=== PATIENT | male | born 1955 | race Asian ===

== ENCOUNTER 2017-12-06 03:45 | Inpatient (IN) | payer MEDICARE, MEDICAID ==
[~2017-12-06] VITALS: Ht 167.6 cm; Wt 65.5 kg
[2017-12-06] MEDS ORDERED: NIFEdipine 10 MG CAP ONE (04:20)
[2017-12-06 04:24] LABS: Basophils # (auto) 0 uL; Basophils % (auto) 0.8 % (0.0-2.0); Eosinophils # (auto) 0 uL; Eosinophils % (auto) 0.1 % (0.0-7.0); Hematocrit 41.5 % (41.0-53.0); Hemoglobin 13.2 g/dL (13.5-17.5); Lymphocytes # (auto) 0.8 uL; Lymphocytes % (auto) 12.6 % (10.0-50.0); Mean Corpuscular Hemoglobin 28.7 pg (28.0-32.0); Mean Corpuscular Hgb Conc. 31.7 g/dL (32.0-36.0); Mean Corpuscular Volume 90.3 fL (80.0-100.0); Monocytes # (auto) 0.9 uL; Monocytes % (auto) 13.7 % (0.0-12.0); Neutrophils # (auto) 4.6 uL; Neutrophils % (auto) 72.8 % (37.0-80.0); Nucleated Red Blood Cells % 0.1 %; Platelet Count (auto) 149 10^3/uL (140-450); Red Cell Distribution Width 17.7 % (11.8-14.3); White Blood Cell 6.3 10^3/uL (4.4-10.8)
[2017-12-06] MEDS ORDERED: NIFEdipine 10 MG CAP PO ONE (04:30)
[2017-12-06 04:39] LABS: INR 1.1 (0.9-1.15); Partial Thromboplastin Time 23.8 sec (22.64-33.71)
[2017-12-06] MEDS ORDERED: ALBUTEROL SULF 2.5 MG/0.5ML(0.5%) NEB SOLN NEB ONE (04:45)
[2017-12-06] MEDS ORDERED: methylPREDNISolone SOD SUCC 125 MG/2 ML VL IV ONE (04:45)
[2017-12-06] MEDS ORDERED: IPRATROPIUM BROM 0.5 MG/2.5ML INH SOL NEB ONE (04:45)
[2017-12-06] MEDS ORDERED: ALBUTEROL SULF 2.5 MG/0.5ML(0.5%) NEB SOLN ONE (04:55)
[2017-12-06] MEDS ORDERED: IPRATROPIUM BROM 0.5 MG/2.5ML INH SOL ONE (04:55)
[2017-12-06] MEDS ORDERED: AZTREONAM 1GM INJ 1 GM in D5W 5% 50 ML IV ONE (06:45)
[2017-12-06] MEDS ORDERED: AZITHROMYCIN 500MG/ 250ML 250 ML IV ONE (06:45)
[2017-12-06 07:45] LABS: Potassium 6.1 mmol/L (3.5-5.1)
[2017-12-06 07:46] LABS: Albumin 3.6 g/dL (3.4-5.0); BUN/Creatinine Ratio 3.9; Bilirubin, Total 0.6 mg/dL (0.2-1.0); Calcium 8.2 mg/dL (8.5-10.1); Total Protein 7.4 g/dL (6.4-8.2)
[2017-12-06 07:47] LABS: Magnesium 2.5 mg/dL (1.6-2.6)
[2017-12-06] MEDS ORDERED: ALBUTEROL SULF 2.5 MG/0.5ML(0.5%) NEB SOLN NEB PRN (09:00)
[2017-12-06] MEDS ORDERED: NITROGLYCERIN 0.4 MG SL TAB SL PRN (09:00)
[2017-12-06] MEDS ORDERED: LORazepam 0.5 MG TAB PO PRN (09:00)
[2017-12-06] MEDS ORDERED: ACETAMINOPHEN 500 MG TAB PO PRN (09:00)
[2017-12-06] MEDS ORDERED: TEMAZEPAM 15 MG CAP PO PRN (09:00)
[2017-12-06] MEDS ORDERED: PIPERACILLIN-TAZOB 2.25GM 50 ML IV ONE (09:00)
[2017-12-06] MEDS ORDERED: HYDROcodone-ACET 5/325MG TAB PO PRN (09:00)
[2017-12-06] MEDS ORDERED: MORPHINE SULFATE 4 MG/ML SYR/VIAL IV PRN ×2 (09:00)
[2017-12-06] MEDS ORDERED: LACTULOSE 20Gm/30ML SOLN PO PRN (09:00)
[2017-12-06] MEDS ORDERED: VANCOMYCIN PER PHARMACY 0 MG IV SCH (09:00)
[2017-12-06] MEDS ORDERED: PROMETHAZINE HCL 25 MG/ML 1ML IV PRN (09:00)
[2017-12-06] MEDS ORDERED: SODIUM POLYSTYRENE SULF 15GM/60ML SUSP PO ONE (09:00)
[2017-12-06] MEDS ORDERED: OSELTAMIVIR 30 MG CAP PO ONE (09:15)
[2017-12-06] MEDS ORDERED: PIPERACILLIN-TAZOB 0.75 GM in D5W 5% 50 ML IV PRN (09:15)
[2017-12-06] MEDS ORDERED: OSELTAMIVIR 30 MG CAP PO PRN (09:15)
[2017-12-06] MEDS: CARVEDILOL 3.125 MG TAB PO SCH ×2 (10:00→22:01)
[2017-12-06] MEDS ORDERED: ENOXAPARIN SOD 30 MG/0.3 ML SYRINGE SC SCH (10:00)
[2017-12-06] MEDS ORDERED: OSELTAMIVIR 30 MG CAP PO SCH (10:00)
[2017-12-06] MEDS: FUROSEMIDE 40 MG/4 ML VIAL IV SCH (10:20)
[2017-12-06] MEDS: ASPirin 81 mg TAB PO SCH (10:21)
[2017-12-06] MEDS: HEPARIN SODIUM (PORCINE) 5000 UNITS/ML 1ML VIAL SC SCH ×2 (10:25→22:01)
[2017-12-06] MEDS: IPRATROPIUM BROM 0.5 MG/2.5ML INH SOL NEB SCH ×2 (11:00→18:25)
[2017-12-06] MEDS: ALBUTEROL SULF 2.5 MG/0.5ML(0.5%) NEB SOLN NEB SCH ×2 (11:10→18:25)
[2017-12-06] MEDS: SODIUM CHLOR 0.9% PF (SALINE LOCK) 10ML VIAL IV SCH ×2 (14:00→21:40)
[2017-12-06] MEDS ORDERED: VANCOMYCIN 1GM/250ML 250 ML IV ONE (15:00)
[2017-12-06 21:27] VITALS: BP 138/77
[2017-12-06] MEDS: PIPERACILLIN-TAZOB 2.25GM 50 ML IV SCH (22:01)
[2017-12-07] VITALS (16 sets, daily range): BP systolic 135–163; BP diastolic 67–85
[2017-12-07] MEDS: IPRATROPIUM BROM 0.5 MG/2.5ML INH SOL NEB SCH ×4 (00:12→19:12)
[2017-12-07] MEDS: ALBUTEROL SULF 2.5 MG/0.5ML(0.5%) NEB SOLN NEB SCH ×4 (00:12→19:11)
[2017-12-07] MEDS ORDERED: OSELTAMIVIR 75 MG CAP PO ONE (01:15)
[2017-12-07] MEDS: SODIUM CHLOR 0.9% PF (SALINE LOCK) 10ML VIAL IV SCH ×3 (05:49→22:00)
[2017-12-07 05:53] LABS: Basophils # (auto) 0 uL; Basophils % (auto) 0.5 % (0.0-2.0); Eosinophils # (auto) 0 uL; Hematocrit 35.4 % (41.0-53.0); Hemoglobin 11.8 g/dL (13.5-17.5); Lymphocytes # (auto) 0.7 uL; Lymphocytes % (auto) 12.7 % (10.0-50.0); Mean Corpuscular Hemoglobin 29.3 pg (28.0-32.0); Mean Corpuscular Hgb Conc. 33.2 g/dL (32.0-36.0); Mean Corpuscular Volume 88.3 fL (80.0-100.0); Monocytes # (auto) 0.6 uL; Monocytes % (auto) 11.1 % (0.0-12.0); Neutrophils # (auto) 4.4 uL; Neutrophils % (auto) 75.7 % (37.0-80.0); Nucleated Red Blood Cells % 0.1 %; Platelet Count (auto) 134 10^3/uL (140-450); Red Blood Cells 4.01 10^6/uL (4.5-5.90); Red Cell Distribution Width 17.6 % (11.8-14.3); White Blood Cell 5.9 10^3/uL (4.4-10.8)
[2017-12-07 06:27] LABS: Albumin 3.3 g/dL (3.4-5.0); BUN/Creatinine Ratio 5.9; Bilirubin, Total 0.5 mg/dL (0.2-1.0); Calcium 7.9 mg/dL (8.5-10.1); Potassium 5.4 mmol/L (3.5-5.1); Total Protein 6.8 g/dL (6.4-8.2)
[2017-12-07] MEDS ORDERED: ICOS1CAP OR (06:33)
[2017-12-07] MEDS ORDERED: ATOR10TA52 PO (06:33)
[2017-12-07] MEDS ORDERED: AMLO5TAB2 PO (06:33)
[2017-12-07] MEDS ORDERED: SEVE800T8 PO (06:33)
[2017-12-07] MEDS ORDERED: DOXA1TAB42 PO (06:33)
[2017-12-07] MEDS ORDERED: PANC3600 OR (06:33)
[2017-12-07] MEDS ORDERED: ASP81EC PO (06:33)
[2017-12-07] MEDS ORDERED: CARV12.544 PO (06:33)
[2017-12-07] MEDS ORDERED: B-COTAB10 OR (06:33)
[2017-12-07] MEDS ORDERED: CALC667C PO (06:33)
[2017-12-07] MEDS: FUROSEMIDE 40 MG/4 ML VIAL IV SCH (09:42)
[2017-12-07] MEDS: CARVEDILOL 3.125 MG TAB PO SCH ×2 (09:43→22:54)
[2017-12-07] MEDS: ASPirin 81 mg TAB PO SCH (09:43)
[2017-12-07] MEDS: PIPERACILLIN-TAZOB 2.25GM 50 ML IV SCH ×2 (09:44→22:00)
[2017-12-07] MEDS: HEPARIN SODIUM (PORCINE) 5000 UNITS/ML 1ML VIAL SC SCH ×2 (09:47→22:51)
[2017-12-07] MEDS ORDERED: OSELTAMIVIR 75 MG CAP PO SCH (10:00)
[2017-12-07] MEDS ORDERED: SODIUM CHL 0.9% 1000 ML BAG XX ONE (10:45)
[2017-12-07] MEDS ORDERED: VANCOMYCIN 1GM/250ML 250 ML IV ONE (11:00)
[2017-12-07] MEDS ORDERED: AZITHROMYCIN 500MG/ 250ML 250 ML IV SCH (12:00)
[2017-12-07] MEDS ORDERED: OSELTAMIVIR 30 MG CAP PO SCH (15:45)
[2017-12-08] MEDS: IPRATROPIUM BROM 0.5 MG/2.5ML INH SOL NEB SCH ×3 (00:03→11:28)
[2017-12-08] MEDS: ALBUTEROL SULF 2.5 MG/0.5ML(0.5%) NEB SOLN NEB SCH ×3 (00:03→11:28)
[2017-12-08 05:00] VITALS: BP 183/99
[2017-12-08] MEDS: SODIUM CHLOR 0.9% PF (SALINE LOCK) 10ML VIAL IV SCH (06:00)
[2017-12-08 06:45] LABS: Basophils # (auto) 0 uL; Basophils % (auto) 0.4 % (0.0-2.0); Eosinophils # (auto) 0 uL; Eosinophils % (auto) 0.1 % (0.0-7.0); Hematocrit 37.5 % (41.0-53.0); Hemoglobin 12.3 g/dL (13.5-17.5); Lymphocytes # (auto) 0.5 uL; Lymphocytes % (auto) 8.7 % (10.0-50.0); Mean Corpuscular Hgb Conc. 32.7 g/dL (32.0-36.0); Mean Corpuscular Volume 88.7 fL (80.0-100.0); Monocytes # (auto) 0.4 uL; Neutrophils # (auto) 5.1 uL; Neutrophils % (auto) 84.8 % (37.0-80.0); Platelet Count (auto) 156 10^3/uL (140-450); Red Blood Cells 4.23 10^6/uL (4.5-5.90); Red Cell Distribution Width 17.8 % (11.8-14.3)
[2017-12-08 07:17] LABS: BUN/Creatinine Ratio 6.9; Calcium 7.2 mg/dL (8.5-10.1); Potassium 5.4 mmol/L (3.5-5.1)
[2017-12-08 08:00] VITALS: BP 148/80
[2017-12-08 09:00] VITALS: BP 160/93
[2017-12-08] MEDS: FUROSEMIDE 40 MG/4 ML VIAL IV SCH (09:55)
[2017-12-08] MEDS: PIPERACILLIN-TAZOB 2.25GM 50 ML IV SCH (09:55)
[2017-12-08] MEDS: ASPirin 81 mg TAB PO SCH (09:56)
[2017-12-08] MEDS: CARVEDILOL 3.125 MG TAB PO SCH (09:56)
[2017-12-08 10:45] VITALS: BP 160/93
== END 2017-12-08 11:30 | disposition home or self-care (01) | DRG 177 ==
LOC: ER 03:46 → TELE 03:47 → ICU WEST 12-07 05:41 → EAST 12-07 16:46
PROVIDERS: ADMIT Internal Medicine; ATTEND Family Medicine
PROC: 5A1D70Z Performance of Urinary Filtration, Intermittent, Less than 6 Hours Per Day (ICD-10-PCS; principal; 2017-12-08)
DX: J15.6 Pneumonia due to other Gram-negative bacteria (principal); J96.01 Acute respiratory failure with hypoxia; I13.2 Hypertensive heart and chronic kidney disease with heart failure and with stage 5 chronic kidney disease, or end stage renal disease; N18.6 End stage renal disease; I50.33 Acute on chronic diastolic (congestive) heart failure; D64.9 Anemia, unspecified; E78.5 Hyperlipidemia, unspecified; E87.5 Hyperkalemia; F17.200 Nicotine dependence, unspecified, uncomplicated; N40.0 Benign prostatic hyperplasia without lower urinary tract symptoms; Z99.2 Dependence on renal dialysis
CPT/HCPCS: 36415; 36600; 70450; 71045; 71250; 74176; 80048; 80053; 80061; 80202; 82140; 82550; 82805; 82962; 83605; 83735; 83880; 84484; 85025; 85379; 85610; 85730; 87040; 87081; 87804; 90935; 93005; 93306; 94640; 96365; 96367; 96375; 99291; G9035; J1642; J2543; J7060

== ENCOUNTER 2025-06-19 11:13 | Inpatient (IN) | payer OTHER, MEDICAID ==
[~2025-06-19] VITALS: Ht 33 cm; Wt 59.2 kg
[~2025-06-19 11:13] MED LIST: AMLO1TAB22 PO; ASPI-394 PO; ATOR10TA52 PO; B-CO1TAB60 OR; CALC667C PO; CARV12.544 PO; DOXA1TAB42 PO; ICOS1CAP OR; PANC3600 OR; SEVE800T8 PO
[2025-06-19 11:38] VITALS: PULSE 50; RESP 16; O2SAT 94
--- NOTE | 2025-06-19 11:41 | ED.PDOC ---
General HPI Comments This is a 69 year-old male who presents to the ED with a chief complaint of urinary retention with additional symptoms of weight gain and swelling to L hand, face, and bilateral legs as of X6 days ago. Pt reports minimal urination, about half a cup a day. 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 Patient has no further complaints at this time and otherwise denies N/V/D, fever, chills, dysuria, hematuria, or chest pain. Chief Complaint: Urinary Time Seen by MD: 11:43 Reviewed notes: Nurses Notes, Medications, Allergies Allergies: Coded Allergies: No Known Drug Allergy (Verified Allergy, Unknown, 12/06/17) Home Meds Reported Medications Carvedilol (Carvedilol) 12.5 Mg Tab, 12.5 MG PO Q12HR for 30 Days, MG 12/07/17 Doxazosin Mesylate (Doxazosin Mesylate) 2 Mg Tab, 4 MG PO HS for 30 Days, MG 12/07/17 Aspirin (Aspir-Low Ec) 81 Mg Tb, 81 MG PO DAILY for 30 Days, MG 12/07/17 Amlodipine Besylate (Amlodipine Besylate) 5 Mg Tab, 10 MG PO DAILY for 30 Days, MG 12/07/17 Atorvastatin Calcium (ATORVASTATIN CALCIUM) 10 Mg Tab, 1 TAB PO DAILY, #30 TAB 5 Refills 12/07/17 B-Complex W/ C & Folic Acid (Nephro-Martin) Tab, 1 OR DAILY, TAB 12/07/17 Calcium Acetate (Phosphate Bin (Calcium Acetate) 667 Mg Cap, 1334 MG PO TIDWM for 30 Days, MG 12/07/17 Pancrelipase (Lipase-Protease- (CREON) 36,000 Unt Cap, 36991 UNT OR TID, CAP 12/07/17 Sevelamer Carbonate (Renvela) 800 Mg Tab, 800 MG PO TIDWM for 30 Days, MG 12/07/17 Epa Ethyl Elsie (VASCEPA) 1 Gm Cap, 1 GM OR TID, CAP 12/07/17 Information Source: Patient Mode of Arrival: Ambulatory Severity: Moderate Timing: Days Duration: Since onset Prehospital treatment: None Onset: Spontaneous Symptoms: Inability to void associated signs and symptoms: Inability to Void Past Medical History PAST MEDICAL HISTORY: CKF, ESRD, HTN Surgical History: Denies all surgeries Family History Family History: Unknown Social History Smoker: Non-Smoker Alcohol: Denies ETOH Use Drugs: Denies Drug Use Lives In: Home Constitutional: reports: others (swelling to L hand, face, and bilateral legs. Weight gain +10 pounds ); denies: chills, diaphoresis, fatigue, fever, malaise, sweats, weakness EENTM: denies: blurred vision, double vision, ear bleeding, ear discharge, ear drainage, ear pain, ear ringing, eye pain, eye redness, hearing loss, mouth pain, mouth swelling, nasal discharge, nose bleeding, nose congestion, nose pain, photophobia, tearing, throat pain, throat swelling, voice changes, others Respiratory: denies: cough, hemoptysis, orthopnea, SOB at rest, shortness of breath, SOB with excertion, stridor, wheezing, others Cardiovascular: denies: chest pain, dizzy spells, diaphoresis, Dyspnea on exertion, edema, irregular heart beat, left arm pain, lightheadedness, palp itations, PND, syncope, others Gastrointestinal: denies: abdomen distended, abdominal pain, blood streaked bowels, constipated, diarrhea, dysphagia, difficulty swallowing, hematemesis, melena, nausea, poor appetite, poor fluid intake, rectal bleeding, rectal pain, vomiting, others Genitourinary: reports: others (urinary retention ); denies: burning, dysuria, flank pain, frequency, hematuria, incontinence, penile discharge, penile sore, pain, testicle pain, testicle swelling, urgency Neurological: denies: dizziness, fainting, headache, left sided numbness, left sided weakness, numbness, paresthesia, pre-existing deficit, right sided numbness, right sided weakness, seizure, speech problems, tingling, tremors, weakness, others Musculoskeletal: denies: back pain, gout, joint pain, joint swelling, muscle pain, muscle stiffness, neck pain, others Integumetry: denies: bruises, change in color, change in hair/nails, dryness, laceration, lesions, lumps, rash, wounds, others Hematologic/Lymphatic: denies: anemia, blood clots, easy bleeding, easy bruising, swollen glands, others Endocrine: denies: excessive hunger, excessive sweating, excessive thirst, excessive urination, flushing, intolerance to cold, intolerance to heat, unexplained weight gain, unexplained weight loss, others Psychiatric: denies: anxiety, bipolar disorder, depression, hopeless, panic disorder, schizophrenia, sleepless, suicidal, others All Other Systems: Reviewed and Negative Physical Exam General Appearance: Moderate Distress HEENT: Normal ENT Inspection, Pharynx Normal, TMs Normal Neck: Full Range of Motion, Non-Tender, Normal, Normal Inspection Respiratory: Chest Non-Tender, Lungs Clear, No Accessory Muscle Use, No Respiratory Distress, Normal Breath Sounds Cardiovascular: No Edema, No JVD, No Murmur, No Gallop, Normal Peripheral Pulses, Regular Rate/Rhythm Breast Exam: Deferred Gastrointestinal: No Organomegaly, Non Tender, No Pulsatile Mass, Normal Bowel Sounds, Soft Genitalia: Deferred Pelvic: Deferred Rectal: Deferred Extremities: No calf tenderness, Normal capillary refill, Normal inspection, Normal range of motion, Non-tender, No pedal edema Musculoskeletal : Apperance: Normal Neurologic: Alert, human resources representative II-XII nml as Tested, No Motor Deficits, Normal Affect, Normal Mood, No Sensory Deficits Cerebellar Function: NOT DONE Reflexes: NOT DONE Skin: Dry, Normal Color, Warm Peripheral Pulses: 3+ Radial (R), 3+ Radial (L) Lymphatic: No Adenopathy Was a procedure done? Was a procedure done?: No EKG EKG : Pulse Rate (adult): 56 [place]: Normal Cardiac Rhythm: NSR Block: None Hypertrophy: None ST: Normal Comments Possible LAE Differential Diagnosis Kidney stone (Female): Musculoskeletal pain, Urinary obstruction, Urolithiasis Penile/Scrotal: Prostatitis, UTI, Urinary Retention X-Ray, Labs, Meds, VS Vital Signs Date Time Temp Pulse Resp B/P (MAP) Pulse Ox O2 Delivery O2 Flow Rate FiO2 06/19/25 14:00 97.2 51 17 122/52 (75) 95 97.2 06/19/25 13:00 97.2 50 17 122/53 (76) 96 97.2 06/19/25 11:41 56 06/19/25 11:38 50 16 94 Nasal Cannula* 2 28 06/19/25 11:38 50 16 124/58 (80) 94 06/19/25 11:28 56 06/19/25 11:16 98.0 18 18 134/57 93 98.0 Lab Test 06/19/25 13:08 06/19/25 11:59 Range/Units Troponin I High Sensitivity 12 11 </=54 ng/L White Blood Count 6.2 4.4-10.8 10^3/uL Red Blood Count 4.80 4.5-5.90 10^6/uL Hemoglobin 13.6 13.5-17.5 g/dL Hematocrit 41.4 41.0-53.0 % Mean Corpuscular Volume 86.3 80.0-100.0 fL Mean Corpuscular Hemoglobin 28.2 28.0-32.0 pg Mean Corpuscular Hemoglobin Concent 32.7 32.0-36.0 g/dL Red Cell Distribution Width 14.4 H 11.8-14.3 % Platelet Count 154 140-450 10^3/uL Mean Platelet Volume 9.0 6.9-10.8 fL Neutrophils (%) (Auto) 79.7 37.0-80.0 % Lymphocytes (%) (Auto) 10.6 10.0-50.0 % Monocytes (%) (Auto) 7.8 0.0-12.0 % Eosinophils (%) (Auto) 1.4 0.0-7.0 % Basophils (%) (Auto) 0.5 0.0-2.0 % Neutrophils # (Auto) 4.9 1.6-8.6 10 ^3/uL Lymphocytes # (Auto) 0.7 0.4-5.4 10 ^3/uL Monocytes # (Auto) 0.5 0-1.3 10 ^3/uL Eosinophils # (Auto) 0.1 0-0.8 10 ^3/uL Basophils # (Auto) 0 0-0.2 10 ^3/uL Nucleated Red Blood Cells 0.2 % Sodium Level 142 136-145 mmol/L Potassium Level 4.3 3.5-5.1 mmol/L Chloride Level 112 H 98-107 mmol/L Carbon Dioxide Level 17 L 20-31 mmol/L Anion Gap 13 5-15 Blood Urea Nitrogen 21 9-23 mg/dL Creatinine 1.56 H 0.700-1.30 mg/dL Glomerular Filtration Rate Calc 48 >90 mL/min BUN/Creatinine Ratio 13.5 10.0-20.0 Serum Glucose 98 74-106 mg/dL Calcium Level 9.8 8.7-10.4 mg/dL Total Bilirubin 0.6 0.2-1.0 mg/dL Aspartate Amino Transferase (AST) 14 13-40 U/L Alanine Aminotransferase (ALT) 12 7-40 U/L Alkaline Phosphatase 72 46-116 U/L Total Protein 6.2 5.7-8.2 g/dL Albumin 3.8 3.2-4.8 g/dL Patient alert. Complaining of urinary hesitancy. Bladder scan does show 100 mL of urine. Vitals stable. Possibly prostate. Creatinine slightly elevated. He has a donated one of his kidneys. CO2 is low. Cardiac marker within normal limits. Urology consultation. Continue monitoring. Images Reviewed?: Images reviewed and evaluated by me Time of 1ST Reevaluation: 12:39 Reevaluation 1ST: Unchanged Patient Education/Counseling: Diagnosis, Treatment Family Education/Counseling: No Family Present Medical Screening: No EMC Exist At This Time SEPSIS Sepsis Screen Date sepsis recognized/suspect: Jun 19, 2025 Time Sepsis recognized/suspect: 1119 Recent Procedure: No On Antibiotic Therapy: No Respiratory Rate >20: No Heart Rate >90: No Temp<36 C (96.8 F) or >38.3 C: No SBP <90 or MAP <65 mmHG: No New Acute Mental Status Change: No Is the patient on CPAP, BIPAP,: No Physician Orders Chest Portable (06/19/25 11:51) Urinalysis (06/19/25 11:51) Troponin-I Hs (06/19/25 14:51) Vital Signs Date Time Temp Pulse Resp B/P (MAP) Pulse Ox O2 Delivery O2 Flow Rate FiO2 06/19/25 14:00 97.2 51 17 122/52 (75) 95 97.2 06/19/25 13:00 97.2 50 17 122/53 (76) 96 97.2 06/19/25 11:41 56 06/19/25 11:38 50 16 94 Nasal Cannula* 2 28 06/19/25 11:38 50 16 124/58 (80) 94 06/19/25 11:28 56 06/19/25 11:16 98.0 18 18 134/57 93 98.0 Laboratory Tests Test 06/19/25 11:59 White Blood Count 6.2 10^3/uL (4.4-10.8) Departure 1 Departure Time of Disposition: 14:55 Impression: Primary Impression: Urinary retention Additional Impressions: Metabolic acidosis Prostate hypertrophy Disposition: ADMITTED INPATIENT Admit to: Med Surg Condition: Guarded Critical Care Note Critical Care Time?: No Stability Stability form required: No Heart Score Heart Score: Heart Score Response (Comments) Value History Slightly Suspicious 0 EKG Normal 0 Age >65 2 Risk Factors 1 or 2 risk factors 1 Troponin N/A 0 Total 3 I personally scribed for JAYY ALAN MD ([email or web address]) on 06/19/25 at 11:41. Electronically submitted by Latha Connors ([employer]). I personally scribed for JAYY ALAN MD ([email or web address]) on 06/19/25 at 11:54. Electronically submitted by Latha Connors ([employer]). JAYY ALAN MD Jun 19, 2025 11:41
--- NOTE | 2025-06-19 11:42 | ECG ---
[facility] Test Date: 2025-06-19 Test Time: 11:28:17 Pat Name: ELIAS IRAHETA Department: Room: 0214T Gender: M Tailer Out: DYAN : 1955 Requested By: JAYY ALAN Order Number: [id number] Reading MD: Niall Ruggiero Measurements Intervals [place] Rate: 56 P: -5 SD: 153 QRS: 19 QRSD: 82 T: 69 QT: 437 QTc: 422 Interpretive Statements Sinus rhythm Probable left atrial enlargement Probable anteroseptal infarct, old Electronically Signed On 06-25-2025 21:47:14 PDT by Niall Ruggiero Please click the below link to view image of tracing.
[2025-06-19 12:10] LABS: Hematocrit 41.4 % (41.0-53.0); Hemoglobin 13.6 g/dL (13.5-17.5); Mean Corpuscular Hemoglobin 28.2 pg (28.0-32.0); Mean Corpuscular Volume 86.3 fL (80.0-100.0); Nucleated Red Blood Cells % 0.2 %
--- NOTE | 2025-06-19 12:23 | DVH ---
XY CHEST PORTABLE, HISTORY: sob COMPARISON: None None TECHNICAL DATA: 1 view of the chest was obtained. FINDINGS: Lines and tubes: None Cardiomediastinal silhouette: Prominent Pulmonary vasculature: Prominent. Lung expansion: normal Lung airspace: normal Lung interstitium: normal Pleura: normal Pneumothorax: no Bones: Unremarkable Other: Bilateral subclavian region vascular stents are noted. IMPRESSION: Cardiomegaly with pulmonary vascular congestion.
[2025-06-19 12:59] LABS: Alanine Aminotransferase 12 U/L (7-40); Albumin 3.8 g/dL (3.2-4.8); Alkaline Phosphatase 72 U/L (46-116); Anion Gap 13 (5-15); BUN/Creatinine Ratio 13.5 (10.0-20.0); Bilirubin, Total 0.6 mg/dL (0.2-1.0); Blood Urea Nitrogen 21 mg/dL (9-23); Glucose 98 mg/dL (74-106); Potassium 4.3 mmol/L (3.5-5.1); Sodium 142 mmol/L (136-145); Total Protein 6.2 g/dL (5.7-8.2)
[2025-06-19 13:00] LABS: Carbon Dioxide 17 mmol/L (20-31); Chloride 112 mmol/L (98-107)
[2025-06-19 13:01] LABS: Calcium 9.8 mg/dL (8.7-10.4)
[2025-06-19 15:56] LABS: Urine Protein, UAD TRACE (Negative)
--- NOTE | 2025-06-19 18:31 | DVHHPRES ---
History of Present Illness Resident Creating Document: ROSINA JIMENEZ History of Present Illness Patient is a 69-year-old male with a past medical history of end-stage renal disease status post renal transplant, hypertensive heart disease, insulin dependent diabetes mellitus presented to the ED with a chief complaint of worsening shortness of breath with the last 2 days. Patient reports since the last 2 days he has been having worsening shortness of breath which worsens with exertion. Denied any chest pain or pressure. Patient denied any history of NC/heart failure. Patient does not use oxygen at home and does not have any history of COPD or asthma. He denied any recent travel or sick contacts and does not report fever, chills but he did have some expectoration in the last 2 days. On arrival to the ER patient was found to be bradycardic with the ECG showing sinus bradycardia with tall T-waves in V3- V4, but no acute ST segment changes. Serial troponin levels within normal limits and he did not complain of any chest pain. Medical history:end-stage renal disease status post renal transplant, hypertensive heart disease, insulin dependent diabetes mellitus Surgical history: Renal transplant Social history: Patient denies smoking, alcohol, drug use Home medications: Mycophenolate mofetil 500 mg b.i.d., tacrolimus 1 mg b.i.d., prednisolone 5 mg daily, carvedilol, sevelamer, pancrelipase, atorvastatin, amlodipine, aspirin Review of Systems Review of Systems Patient seen and examined at the bedside Reports of shortness of breath while exertion, on oxygen at 4 L/min denies any shortness of breath, chest pain, weakness, abdominal pain, fever or chills Allergies: Coded Allergies: No Known Drug Allergy (Verified Allergy, Unknown, 12/06/17) Exam Vital Signs Vital Signs Date Time Temp Pulse Resp B/P (MAP) Pulse Ox O2 Delivery O2 Flow Rate FiO2 06/19/25 14:00 97.2 51 17 122/52 (75) 95 97.2 06/19/25 11:38 Nasal Cannula* 2 28 Exam Gen - no pallor, no icterus, no cyanosis, no peripheral edema . Skin - Patients skin is warm and dry. HEENT - normocephalic, atraumatic, moist mucous membranes. Neck - full ROM, no LAD, JVD mildly distended Pulmonary - B/L decreased breath sounds with bibasilar rales cardiovascular - regular S1,S2 heard, no added sounds, no murmurs heard. periphe ral pulses normal radial 2+, pedal 2+. GI - soft, nontender abdomen. no hepatosplenomegaly. Bowel sounds normoactive Neurological - Patient is A/O X 3 . Bilateral upper extremity strength 5/5, bilateral lower extremity strength 5/5, no facial droop, normal speech, no tremor, no sensory deficiets. Labs/Xrays Labs Test 06/19/25 14:52 06/19/25 11:59 06/19/25 00:00 Range/Units Troponin I High Sensitivity 13 </=54 ng/L White Blood Count 6.2 4.4-10.8 10^3/uL Red Blood Count 4.80 4.5-5.90 10^6/uL Hemoglobin 13.6 13.5-17.5 g/dL Hematocrit 41.4 41.0-53.0 % Mean Corpuscular Volume 86.3 80.0-100.0 fL Mean Corpuscular Hemoglobin 28.2 28.0-32.0 pg Mean Corpuscular Hemoglobin Concent 32.7 32.0-36.0 g/dL Red Cell Distribution Width 14.4 H 11.8-14.3 % Platelet Count 154 140-450 10^3/uL Mean Platelet Volume 9.0 6.9-10.8 fL Neutrophils (%) (Auto) 79.7 37.0-80.0 % Lymphocytes (%) (Auto) 10.6 10.0-50.0 % Monocytes (%) (Auto) 7.8 0.0-12.0 % Eosinophils (%) (Auto) 1.4 0.0-7.0 % Basophils (%) (Auto) 0.5 0.0-2.0 % Neutrophils # (Auto) 4.9 1.6-8.6 10 ^3/uL Lymphocytes # (Auto) 0.7 0.4-5.4 10 ^3/uL Monocytes # (Auto) 0.5 0-1.3 10 ^3/uL Eosinophils # (Auto) 0.1 0-0.8 10 ^3/uL Basophils # (Auto) 0 0-0.2 10 ^3/uL Nucleated Red Blood Cells 0.2 % Sodium Level 142 136-145 mmol/L Potassium Level 4.3 3.5-5.1 mmol/L Chloride Level 112 H 98-107 mmol/L Carbon Dioxide Level 17 L 20-31 mmol/L Anion Gap 13 5-15 Blood Urea Nitrogen 21 9-23 mg/dL Creatinine 1.56 H 0.700-1.30 mg/dL Glomerular Filtration Rate Calc 48 >90 mL/min BUN/Creatinine Ratio 13.5 10.0-20.0 Serum Glucose 98 74-106 mg/dL Calcium Level 9.8 8.7-10.4 mg/dL Total Bilirubin 0.6 0.2-1.0 mg/dL Aspartate Amino Transferase (AST) 14 13-40 U/L Alanine Aminotransferase (ALT) 12 7-40 U/L Alkaline Phosphatase 72 46-116 U/L Total Protein 6.2 5.7-8.2 g/dL Albumin 3.8 3.2-4.8 g/dL Urine Color Light-yellow Yellow Urine Clarity Clear Clear Urine pH 5.5 5.0-9.0 Urine Specific [place] 1.015 1.001-1.035 Urine Protein Trace H Negative Urine Ketones Negative Negative Urine Blood Negative Negative /uL Urine Nitrite Negative Negative Urine Bilirubin Negative Negative Urine Urobilinogen Normal Negative mg/dL Urine Leukocyte Esterase Negative Negative /uL Urine RBC <1 0 - 3 /hpf Urine Microscopic WBC < 1 0-3 /HPF Urine Squamous Epithelial Cells None seen <5 /hpf Urine Bacteria None seen None Seen /hpf Urine Glucose Normal Normal mg/dL SEPSIS Sepsis Screen Date sepsis recognized/suspect: Jun 19, 2025 Time Sepsis recognized/suspect: 1138 Recent Procedure: No On Antibiotic Therapy: No Respiratory Rate >20: No Heart Rate >90: No Temp<36 C (96.8 F) or >38.3 C: No SBP <90 or MAP <65 mmHG: No New Acute Mental Status Change: No Is the patient on CPAP, BIPAP,: No Physician Orders Chest Portable (06/19/25 11:51) Vital Signs Date Time Temp Pulse Resp B/P (MAP) Pulse Ox O2 Delivery O2 Flow Rate FiO2 06/19/25 14:00 97.2 51 17 122/52 (75) 95 97.2 06/19/25 13:00 97.2 50 17 122/53 (76) 96 97.2 06/19/25 11:41 56 06/19/25 11:38 50 16 94 Nasal Cannula* 2 28 06/19/25 11:38 50 16 124/58 (80) 94 06/19/25 11:28 56 06/19/25 11:16 98.0 18 18 134/57 93 98.0 Laboratory Tests Test 06/19/25 11:59 White Blood Count 6.2 10^3/uL (4.4-10.8) Assessment/Plan Assessment/Plan Acute hypoxic respiratory failure likely due to pulmonary edema Pulmonary edema likely due to acute on chronic heart failure Probable pneumonia likely due to Gram +/- bacteria - chest x-ray shows bilateral pulmonary vascular congestion and cardiomegaly, possible right lower consolidation - on IV Lasix 40 b.i.d. - antibiotics ceftriaxone and doxycycline - duo nebs q.6 hours Sinus bradycardia, symptomatic ? New onset heart failure vs acute on chronic heart failure - ECG showed sinus tachycardia with a slightly tall T-waves in lead V3 and V4 - troponin levels within normal limits - cardiology consulted History of renal transplant SHAJI on CKD likely due to VMN - continued on tacrolimus, mycophenolate mofetil, prednisone - IV Lasix - sevelamer - monitor electrolytes - nephrology consult PUD prophylaxis: Protonix DVT prophylaxis: Heparin Goals of care discussed with the patient for 20 minutes. Full code Plan discussed with Dr. Mosqueda Plan discussed with: Patient, Other (Nurse) Date of Service: Jun 19, 2025 Billing Provider: ASHLEY MOSQUEDA MD Date of Service: Jun 19, 2025 Billing Provider: ASHLEY MOSQUEDA MD Common Visit Codes: 51630-[id number] INP/OBS CARE (HIGH) Secondary Visit Codes: 00451-[id number] CARE PLAN 30 MINUTES (20 minutes) Addendum Addendum Addendum I was physically present for the urbina portions of the service provided to patient by THE RESIDENT. I have reviewed the documentation, discussed the case with resident and agree with the resident's documentation except as noted. Also the patient's clinical case was discussed with the patient's nurse. This medical document was created using an electronic medical record system with computerized dictation system. Although this document has been carefully reviewed, there might still be some phonetic and typographical errors. These areas are purely typographical due to imperfections of the software programs, and do not reflect any compromise in the patient's medical care. Late signature. YOUMATTHEWNG RESIDENT Jun 19, 2025 18:31 AMY HERNANDEZ Jun 19, 2025 19:36 ASHLEY MOSQUEDA MD Jun 22, 2025 11:55
[2025-06-19] MEDS ORDERED: NITROGLYCERIN 0.4 MG SL TAB SL PRN (18:45)
[2025-06-19] MEDS ORDERED: MORPHINE SULFATE INJ 2 MG/ml SYRG IV PRN (18:45)
[2025-06-19] MEDS ORDERED: ONDANSETRON HCL 4 MG/2 ML VIAL IV PRN (18:45)
[2025-06-19 19:50] LABS: Sodium 140 mmol/L (136-145)
[2025-06-19 19:51] LABS: Anion Gap 8 (5-15); Carbon Dioxide 21 mmol/L (20-31)
[2025-06-19 19:52] LABS: Calcium 9.6 mg/dL (8.7-10.4); Chloride 111 mmol/L (98-107); Potassium 5.1 mmol/L (3.5-5.1)
[2025-06-19 19:57] LABS: BUN/Creatinine Ratio 12.5 (10.0-20.0); Blood Urea Nitrogen 20 mg/dL (9-23); Glucose 204 mg/dL (74-106)
--- NOTE | 2025-06-19 20:11 | DVH ---
ULTRASOUND ABDOMEN: REASON FOR EXAM: abd distention TECHNIQUE: Real-time sector scans in the transverse and longitudinal planes were obtained through th e abdomen. FINDINGS: The liver is of normal size and contour. There is hepatopetal flow in the portal vein. The re is no intrahepatic biliary ductal dilatation. There is an anechoic cyst in the inferior left lobe of the liver measuring 2.9 x 2.4 x 3.1 cm. The common bile duct measures 14 mm. No gallstones or sl udge are identified. There is no gallbladder wall thickening nor pericholecystic fluid. There is no sonographic Brower's sign. The spleen is normal in size. The visualized portion of the pancreas is unremarkable. The right kidney is echogenic and measures 8.3 cm. The left kidney is echogenic and measures 9.1 cm. There is no hydronephrosis or nephrolithiasis. There is no evidence of focal renal mass. There ar e several anechoic cysts within the right kidney, the largest of which measures 2.5 cm at the superio r pole. There are a few tiny anechoic cysts within the left kidney, the largest of which measures 1.2 cm in the interpolar region. There is a transplant kidney in the right pelvis which measures 9.9 cm in length. The transplant kid sari demonstrates normal echogenicity. There is no hydronephrosis. The visualized portions of the abdominal aorta demonstrate no evidence of aneurysmal dilatation. The visualized inferior vena cava is unremarkable. There is no free intraperitoneal fluid. There are bilateral pleural effusions. IMPRESSION: Incidental note of bilateral pleural effusions. Dilated common bile duct at 14 mm. Recommend MRCP for evaluation of the distal common bile duct. Atrophic poarch kidneys with multiple cysts. Normal appearance of the right pelvic transplant kidney.
[2025-06-19] MEDS: PANTOPRAZOLE 40 MG TAB PO ONE (21:08)
[2025-06-19] MEDS: FUROSEMIDE 40 MG/4 ML VIAL IV ONE (21:10)
[2025-06-19] MEDS: DOXYCYCLINE 100 MG TAB/CAP PO SCH (22:31)
[2025-06-19 22:41] LABS: COVID19 ANTIGEN SOFIA FIA NEGATIVE (NEGATIVE)
[2025-06-19] MEDS: HEPARIN SODIUM (PORCINE) 5000 UNITS/ML 1ML VIAL SC SCH (23:36)
[2025-06-20] MEDS: MYCOPHENOLATE 500 MG TAB PO SCH (00:56)
[2025-06-20] MEDS: TACROLIMUS 1 MG CAP PO SCH (00:57)
[2025-06-20 04:07] LABS: Hematocrit 46.0 % (41.0-53.0); Hemoglobin 15.0 g/dL (13.5-17.5); Mean Corpuscular Hemoglobin 28.2 pg (28.0-32.0); Mean Corpuscular Volume 86.7 fL (80.0-100.0); Nucleated Red Blood Cells % 0.1 %
[2025-06-20 04:16] LABS: Anion Gap 9 (5-15); Carbon Dioxide 23 mmol/L (20-31); Potassium 4.6 mmol/L (3.5-5.1); Sodium 141 mmol/L (136-145)
[2025-06-20 04:18] LABS: Calcium 10.1 mg/dL (8.7-10.4)
[2025-06-20 04:20] LABS: Chloride 109 mmol/L (98-107)
[2025-06-20 04:23] LABS: BUN/Creatinine Ratio 13.9 (10.0-20.0); Blood Urea Nitrogen 21 mg/dL (9-23); Glucose 186 mg/dL (74-106)
[2025-06-20] MEDS: PANTOPRAZOLE 40 MG TAB PO SCH (06:11)
[2025-06-20] MEDS: FUROSEMIDE 40 MG/4 ML VIAL IV SCH (06:11)
[2025-06-20] MEDS: SEVELAMER 800 MG TAB PO SCH (09:26)
--- NOTE | 2025-06-20 09:37 | DVHINCON2 ---
Date Seen: Jun 20, [address] Pierson Reason for Consultation Pulmonary congestion History of Present Illness This is a 69-year-old male who presents to the ED with shortness of breath for the past two days. He is alert and oriented but a poor historian. He denies dizziness, diaphoresis, orthopnea, paroxysmal nocturnal dyspnea, or lower extremity edema, but reports shortness of breath with exertion. Past medical history significant for chronic kidney disease status post right kidney transplant, hypertension, hyperlipidemia, BPH, and liver failure. Review of prior records shows an echocardiogram in 2018 with preserved left ventricular function (EF 52-56%). In the ED, a 12 lead ECG revealed sinus bradycardia at 58 beats per minute and chest x-ray demonstrated cardiomegaly with pulmonary congestion. Past Medical History As stated in HPI Past Surgical History Right kidney transplant Family History Reviewed, non-contributory to the management of this case. Social History The patient lives at home, denies smoking, alcohol or illicit drugs abuse. Allergies: Coded Allergies: No Known Drug Allergy (Verified Allergy, Unknown, 12/06/17) Home Meds Reported Medications Carvedilol (Carvedilol) 12.5 Mg Tab, 12.5 MG PO Q12HR for 30 Days, MG 12/07/17 Doxazosin Mesylate (Doxazosin Mesylate) 2 Mg Tab, 4 MG PO HS for 30 Days, MG 12/07/17 Aspirin (Aspir-Low Ec) 81 Mg Tb, 81 MG PO DAILY for 30 Days, MG 12/07/17 Amlodipine Besylate (Amlodipine Besylate) 5 Mg Tab, 10 MG PO DAILY for 30 Days, MG 12/07/17 Atorvastatin Calcium (ATORVASTATIN CALCIUM) 10 Mg Tab, 1 TAB PO DAILY, #30 TAB 5 Refills 12/07/17 B-Complex W/ C & Folic Acid (Nephro-Martin) Tab, 1 OR DAILY, TAB 12/07/17 Calcium Acetate (Phosphate Bin (Calcium Acetate) 667 Mg Cap, 1334 MG PO TIDWM for 30 Days, MG 12/07/17 Pancrelipase (Lipase-Protease- (CREON) 36,000 Unt Cap, 34475 UNT OR TID, CAP 12/07/17 Sevelamer Carbonate (Renvela) 800 Mg Tab, 800 MG PO TIDWM for 30 Days, MG 12/07/17 Epa Ethyl Elsie (VASCEPA) 1 Gm Cap, 1 GM OR TID, CAP 12/07/17 Current Medications Current Medications Medications (Trade) Dose Ordered Sig/Jayy Route PRN Reason Start Time Stop Time Status Last Admin Nitroglycerin (Ntrostat Sublingual) 0.4 mg Q5MINP PRN SL FOR CHEST PAIN 06/19/25 18:45 Morphine Sulfate 2 mg Q30M PRN IV FOR CHEST PAIN 06/19/25 18:45 Furosemide (Lasix Injection) 40 mg BIDD IV 06/20/25 06:00 06/20/25 06:11 Pantoprazole Sodium (Protonix Tablet) 40 mg DAILY@0600 PO 06/20/25 06:00 06/20/25 06:11 Ondansetron HCl (Zofran) 4 mg Q6HPRN PRN IV NAUSEA / VOMITING 06/19/25 18:45 Ceftriaxone Sodium 50 ml @ 100 mls/hr DAILY@09 IV 06/20/25 09:00 Doxycycline Monohydrate (Vibramycin Tablet) 100 mg Q12HR PO 06/19/25 22:00 06/19/25 22:31 Heparin Sodium (Porcine) 5,000 units Q12HR SC 06/19/25 22:00 Aspirin 81 mg DAILY PO 06/20/25 10:00 Sevelamer HCl (Renagel) 800 mg TIDWM PO 06/20/25 08:00 Tacrolimus (Prograf) 1 mg BID PO 06/19/25 22:00 Mycophenolate Mofetil (Cellcept) 500 mg BID PO 06/19/25 22:00 Prednisone 5 mg DAILY PO 06/20/25 10:00 Review of Systems Constitutional: No symptom reported Ears, Nose, & Throat: No symptom reported Eyes: No symptom reported Neurological: No symptoms reported Pulmonary/Respiratory: Shortness of breath Cardiovascular: No symptom reported Gastrointestinal: No symptom reported Genitourinary: No symptom reported Musculoskeletal: No symptom reported Skin: No symptom reported Psychiatric: No symptom reported Endocrine: No symptom reported Hemotologic/Lymphatic: No symptom reported Vital Signs Vital Signs Date Time Temp Pulse Resp B/P (MAP) Pulse Ox O2 Delivery O2 Flow Rate FiO2 06/20/25 08:00 57 06/20/25 06:11 143/57 06/20/25 05:30 19 100 06/19/25 20:30 98.1 98.1 06/19/25 19:30 Nasal Cannula* 4 36 Physical Exam INITIAL VITAL SIGNS: Reviewed by me GENERAL: Alert and interactive. No acute distress. HEAD: Head is normocephalic and atraumatic. EYES: EOMI, PERRL. No scleral icterus. No conjunctival injection. ENT: Moist mucous membranes. NECK: Supple, No masses, Full range of motion. RESPIRATORY: No tachypnea. Clear breath sounds bilaterally. No wheezing, rales, rhonchi. CV: Regular rate and rhythm. Mild JVP distention on supine position. No edema GI/: Active bowel sounds, soft, nondistended, nontender. No guarding. No rebound. No masses. No CVA tenderness. INTEGUMENTARY: Warm and dry. No obvious rashes. NEUROLOGIC: Alert and oriented. Face is symmetric. Speech is normal. Moves all extremities equally. Labs/Diagnostic Data Labs Test 06/20/25 03:48 06/19/25 22:02 06/19/25 19:24 06/19/25 14:52 Range/Units White Blood Count 6.8 4.4-10.8 10^3/uL Red Blood Count 5.30 4.5-5.90 10^6/uL Hemoglobin 15.0 13.5-17.5 g/dL Hematocrit 46.0 # 41.0-53.0 % Mean Corpuscular Volume 86.7 80.0-100.0 fL Mean Corpuscular Hemoglobin 28.2 28.0-32.0 pg Mean Corpuscular Hemoglobin Concent 32.5 32.0-36.0 g/dL Red Cell Distribution Width 14.2 11.8-14.3 % Platelet Count 163 140-450 10^3/uL Mean Platelet Volume 8.9 6.9-10.8 fL Neutrophils (%) (Auto) 78.6 37.0-80.0 % Lymphocytes (%) (Auto) 9.8 L 10.0-50.0 % Monocytes (%) (Auto) 9.9 0.0-12.0 % Eosinophils (%) (Auto) 1.3 0.0-7.0 % Basophils (%) (Auto) 0.4 0.0-2.0 % Neutrophils # (Auto) 5.3 1.6-8.6 10 ^3/uL Lymphocytes # (Auto) 0.7 0.4-5.4 10 ^3/uL Monocytes # (Auto) 0.7 0-1.3 10 ^3/uL Eosinophils # (Auto) 0.1 0-0.8 10 ^3/uL Basophils # (Auto) 0 0-0.2 10 ^3/uL Nucleated Red Blood Cells 0.1 % Sodium Level 141 136-145 mmol/L Potassium Level 4.6 3.5-5.1 mmol/L Chloride Level 109 H 98-107 mmol/L Carbon Dioxide Level 23 20-31 mmol/L Anion Gap 9 5-15 Blood Urea Nitrogen 21 9-23 mg/dL Creatinine 1.51 H 0.700-1.30 mg/dL Glomerular Filtration Rate Calc 50 >90 mL/min BUN/Creatinine Ratio 13.9 10.0-20.0 Serum Glucose 186 H 74-106 mg/dL Calcium Level 10.1 8.7-10.4 mg/dL Influenza Type A Antigen Negative Negative Influenza Type B Antigen Negative Negative SARS-CoV-2 Antigen (Rapid) Negative NEGATIVE Lactic Acid Level 0.8 0.4-2.0 mmol/L Phosphorus Level 2.7 2.4-5.1 mg/dL B-Type Natriuretic Peptide 858.25 0-100 pg/mL Troponin I High Sensitivity 13 </=54 ng/L Test 06/19/25 11:59 06/19/25 00:00 Range/Units Total Bilirubin 0.6 0.2-1.0 mg/dL Aspartate Amino Transferase (AST) 14 13-40 U/L Alanine Aminotransferase (ALT) 12 7-40 U/L Alkaline Phosphatase 72 46-116 U/L Total Protein 6.2 5.7-8.2 g/dL Albumin 3.8 3.2-4.8 g/dL Urine Color Light-yellow Yellow Urine Clarity Clear Clear Urine pH 5.5 5.0-9.0 Urine Specific [place] 1.015 1.001-1.035 Urine Protein Trace H Negative Urine Ketones Negative Negative Urine Blood Negative Negative /uL Urine Nitrite Negative Negative Urine Bilirubin Negative Negative Urine Urobilinogen Normal Negative mg/dL Urine Leukocyte Esterase Negative Negative /uL Urine RBC <1 0 - 3 /hpf Urine Microscopic WBC < 1 0-3 /HPF Urine Squamous Epithelial Cells None seen <5 /hpf Urine Bacteria None seen None Seen /hpf Urine Glucose Normal Normal mg/dL PROCEDURE(s): CXRP - CHEST PORTABLE REASON: sob ORDER NUMBER(s): [id number], ACCESSION NUMBER(s): [id number] XY CHEST PORTABLE, HISTORY: sob COMPARISON: None None TECHNICAL DATA: 1 view of the chest was obtained. FINDINGS: Lines and tubes: None Cardiomediastinal silhouette: Prominent Pulmonary vasculature: Prominent. Lung expansion: normal Lung airspace: normal Lung interstitium: normal Pleura: normal Pneumothorax: no Bones: Unremarkable Other: Bilateral subclavian region vascular stents are noted. IMPRESSION: Cardiomegaly with pulmonary vascular congestion. Assessment Acute on chronic decompensated heart failure. Possible NYHA II-III Cardiomegaly and pulmonary vascular congestion Sinus bradycardia Hyperlipidemia Chronic kidney disease s/p right kidney transplant Hypertension BPH Plan/Recommendation (Dr. Randall ): Continue to monitor on telemetry due to sinus bradycardia risk of heart block. He will under go a transthoracic echocardiogram to assess left ventricular function and structural heart disease. Laboratory evaluation will include hemoglobin A1c, TSH, and lipid panel for cardiovascular risk assessment and optimization. Daily weights and strict intake and output monitoring will be implemented to guide fluid management. Intravenous furosemide should be continued to manage pulmonary congestion and volume overload, with close monitor ing of electrolytes and renal function, considering his kidney transplant history. Electrolytes, renal function, and magnesium levels will be checked regularly. BNP trends will be monitored to assess response to therapy. Medication adjustment will be made as appropriate for rate control and heart failure management. Patient education regarding heart failure symptoms fluid restriction and activity limitations is provided. In the meantime home medication will be continued including Coreg for rate and heart failure management, atorvastatin for lipid control, and aspirin daily for cardiovascular prophylaxis. Medication adjustment will be made as needed based on clinical status and lab results. This medical document was created using an electronic medical record system with voice recognition software and computerized dictation system. Although this document has been carefully reviewed, there might still be some phonetic and typographical errors. Occasional wrong-word or ``sound-alike substitutions may have occurred due to the inherent limitations of voice recognition software. These areas are purely typographical due to imperfections of the software programs and do not reflect any compromise in the patient's medical care. Please read the chart carefully and recognize, using context, where these substitutions have occurred. Plan discussed with: Patient Plan discussed with: Patient NYHA Physical activity limitations: Class2(Slight)fatigue,sob Date of Service: Jun 20, 2025 Billing Provider: AMINATA RANDALL MD Cardiology Common Codes: NOT BILLABLE Cardiology Consultation Codes: [id number] CONSULT <45MIN STEFAN HONG HEMATOLOGY SPECIALIST Jun 20, 2025 09:37
[2025-06-20 11:16] VITALS: PULSE 59; RESP 20; TEMP 98.1
[2025-06-20 11:39] LABS: Magnesium 1.6 mg/dL (1.6-2.6); Triglycerides 226.0 mg/dL (< 150)
[2025-06-20 11:40] LABS: Cholesterol 194.0 mg/dL (< 200); HDL Cholesterol 45.0 mg/dL (40-59)
--- NOTE | 2025-06-20 11:56 | DVHPNRES ---
Progress Note Date Seen: Jun 20, 2025 Resident Creating Document: DIANA FELDMAN RESIDENT Medical Necessity Reason Pt with a Central, PICC or Fol: No Subjective Review of Systems 06/20: Patient was seen and examined at bedside. He stated having significant clinical improvement. He was still on nasal cannula at 4 L saturating well above 96%. He is currently ambulating to the bedside commode, denies any dizziness, lightheadedness, chest pain, significant shortness of breath. Turkish speaking; ship's officer was helping with conversation Objective vital signs Vital Sign Date Time Temp Pulse Resp B/P (MAP) Pulse Ox O2 Delivery O2 Flow Rate FiO2 06/20/25 11:16 98.1 59 20 98.1 06/20/25 09:59 Nasal Cannula* 2 28 06/20/25 06:11 143/57 06/20/25 05:30 100 Total Intake and Output 06/19/25 06/19/25 06/20/25 15:00 23:00 07:00 Intake Total 50 ml Output Total 1950 ml Balance 50 ml -1950 ml medications Current Medications Medications Dose Ordered Sig/Jayy Route Start Time Stop Time Status Last Admin Dose Admin Nitroglycerin 0.4 mg Q5MINP PRN SL 06/19/25 18:45 Morphine Sulfate 2 mg Q30M PRN IV 06/19/25 18:45 Furosemide 40 mg BIDD IV 06/20/25 06:00 06/20/25 06:11 40 MG Pantoprazole Sodium 40 mg DAILY@0600 PO 06/20/25 06:00 06/20/25 06:11 40 MG Ondansetron HCl 4 mg Q6HPRN PRN IV 06/19/25 18:45 Ceftriaxone Sodium 50 ml @ 100 mls/hr DAILY@09 IV 06/20/25 09:00 06/20/25 09:26 100 MLS/HR Doxycycline Monohydrate 100 mg Q12HR PO 06/19/25 22:00 06/20/25 09:27 100 MG Heparin Sodium (Porcine) 5,000 units Q12HR SC 06/19/25 22:00 06/20/25 09:31 5,000 UNITS Sevelamer HCl 800 mg TIDWM PO 06/20/25 08:00 06/20/25 09:26 800 MG Tacrolimus 1 mg BID PO 06/19/25 22:00 06/20/25 09:28 1 MG Mycophenolate Mofetil 500 mg BID PO 06/19/25 22:00 06/20/25 09:28 500 MG Prednisone 5 mg DAILY PO 06/20/25 10:00 06/20/25 09:27 5 MG Aspirin 81 mg DAILY PO 06/21/25 10:00 Carvedilol 12.5 mg Q12HR PO 06/20/25 22:00 Atorvastatin Calcium 10 mg HS PO 06/20/25 22:00 Examination Physical examination as below: General: Awake, alert, comfortable appearing, in no acute distress. HEENT: Head is normocephalic and atraumatic. Pupils are equal, round, and reactive to light. Extraocular muscles are intact. No nasal discharge. No facial trauma. Intraoral exam shows moist mucous membranes with no tonsillar enlargement or exudate. Neck: Supple with no cervical lymphadenopathy. Heart: Regular rate without murmur, rub, or gallop. Lungs: Scattered bilateral crackles Abdomen: No external sign of injury. Bowel sounds are present. Abdomen is soft, nontender. No rebound, no guarding, no rigidity. There are no palpable masses. There is no flank pain on exam. Extremities: Strong peripheral pulses. There is no clubbing, no cyanosis, and no edema. Left-sided arm old surgical scar from AV fistula. Right-sided arm AV fistula. Skin: No rash. Neurologic: Cranial nerves II-XII intact without motor, sensory, or cerebellar deficit, no asterixis. laboratory and microbiology Laboratory Tests 06/20/25 03:48 Test 06/20/25 03:48 Range/Units Serum Glucose 186 H 74-106 mg/dL Labs and/or images reviewed: Labs reviewed by me, Image(s) reviewed by me Problem List/Assessment/Plan Problem List/Assessment/Plan #Acute hypoxic respiratory failure likely due to pulmonary edema #Pulmonary edema likely due to acute on chronic heart failure #Probable new onset Acute heart failure systolic/diastolic ejection fraction #Probable pneumonia likely due to Gram +/- bacteria - chest x-ray shows bilateral pulmonary vascular congestion and cardiomegaly, possible right lower consolidation - continue IV Lasix 40 b.i.d. - antibiotics ceftriaxone and doxycycline - duo nebs q.6 hours Pending echocardiogram Wean down oxygen to room air, maintain an oxygen saturation above 92% #Sinus bradycardia, asymptomatic - ECG showed sinus bradycardia with a slightly tall T-waves in lead V3 and V4 - troponin levels within normal limits - cardiology following Pending echocardiogram #History of renal transplant #SHAJI on CKD likely due to VMN - continued on tacrolimus, mycophenolate mofetil, prednisone - IV Lasix - sevelamer - monitor electrolytes - nephrology consult pending #Common bile duct dilation, asymptomatic Follow with MRCP in the outpatient setting #Dyslipidemia Continue Lipitor #Type 2 diabetes with hyperglycemia SSI mild Pending A1c PUD prophylaxis: Protonix DVT prophylaxis: Heparin Plan discussed with Dr. Mosqueda Plan discussed with: Patient, Other (RN) My Orders My Orders Orders - DIANA FELDMAN RESIDENT Procedure Category Date Status Time Magnesium Vasquez PHA 06/20/25 Verified 11:45 Date of Service: Jun 20, 2025 Billing Provider: ASHLEY MOSQUEDA MD Common Visit Codes: [id number] INP/OBS CARE(HIGH) Addendum Addendum Addendum I was physically present for the urbina portions of the service provided to patient by THE RESIDENT. I have reviewed the documentation, discussed the case with resident and agree with the resident's documentation except as noted. Also the patient's clinical case was discussed with the patient's nurse. This medical document was created using an electronic medical record system with computerized dictation system. Although this document has been carefully reviewed, there might still be some phonetic and typographical errors. These areas are purely typographical due to imperfections of the software programs, and do not reflect any compromise in the patient's medical care. Late signature. DIANA FELDMAN RESIDENT Jun 20, 2025 11:56 ASHLEY MOSQUEDA MD Jun 22, 2025 11:56
[2025-06-20] MEDS ORDERED: DEXTROSE (50%) 50ML SYRG IV PRN (12:00)
[2025-06-20] MEDS: MAGNESIUM SULFATE 1GM/100ML 100 ML IV ONE (13:26)
--- NOTE | 2025-06-20 14:29 | DVHINCON2 ---
Date of service: Jun 20, [address] Pierson Reason for Consultation ESRD, now status post kidney transplant status History of Present Illness Mr. Jeffries is a 69-year-old male with known history of prior ESRD now status post what he reported to be a donor kidney transplant two years ago at [facility]. His presentation to [facility] currently is related to increase in weight gain over the past week with associated exertional dyspnea. He has been treated with IV diuretics and states that his shortness of breath has improved since hospital admission. He states that he has gained approximately 8 lb over the past week and keeps meticulous records regarding his vital signs and his weights. He denies gross hematuria, tenderness over his allograft, fevers or chills. Past Medical History ESRD Hypertension Chronic heart failure Kidney transplant status Allergies: Coded Allergies: No Known Drug Allergy (Verified Allergy, Unknown, 12/06/17) Home Meds Reported Medications Carvedilol (Carvedilol) 12.5 Mg Tab, 12.5 MG PO Q12HR for 30 Days, MG 12/07/17 Doxazosin Mesylate (Doxazosin Mesylate) 2 Mg Tab, 4 MG PO HS for 30 Days, MG 12/07/17 Aspirin (Aspir-Low Ec) 81 Mg Tb, 81 MG PO DAILY for 30 Days, MG 12/07/17 Amlodipine Besylate (Amlodipine Besylate) 5 Mg Tab, 10 MG PO DAILY for 30 Days, MG 12/07/17 Atorvastatin Calcium (ATORVASTATIN CALCIUM) 10 Mg Tab, 1 TAB PO DAILY, #30 TAB 5 Refills 12/07/17 B-Complex W/ C & Folic Acid (Nephro-Martin) Tab, 1 OR DAILY, TAB 12/07/17 Calcium Acetate (Phosphate Bin (Calcium Acetate) 667 Mg Cap, 1334 MG PO TIDWM for 30 Days, MG 12/07/17 Pancrelipase (Lipase-Protease- (CREON) 36,000 Unt Cap, 37294 UNT OR TID, CAP 12/07/17 Sevelamer Carbonate (Renvela) 800 Mg Tab, 800 MG PO TIDWM for 30 Days, MG 12/07/17 Epa Ethyl Elsie (VASCEPA) 1 Gm Cap, 1 GM OR TID, CAP 12/07/17 Current Medications Current Medications Medications (Trade) Dose Ordered Sig/Jayy Route PRN Reason Start Time Stop Time Status Last Admin Nitroglycerin (Ntrostat Sublingual) 0.4 mg Q5MINP PRN SL FOR CHEST PAIN 06/19/25 18:45 Morphine Sulfate 2 mg Q30M PRN IV FOR CHEST PAIN 06/19/25 18:45 Furosemide (Lasix Injection) 40 mg BIDD IV 06/20/25 06:00 06/20/25 06:11 Pantoprazole Sodium (Protonix Tablet) 40 mg DAILY@0600 PO 06/20/25 06:00 06/20/25 06:11 Ondansetron HCl (Zofran) 4 mg Q6HPRN PRN IV NAUSEA / VOMITING 06/19/25 18:45 Ceftriaxone Sodium 50 ml @ 100 mls/hr DAILY@09 IV 06/20/25 09:00 06/20/25 09:26 Doxycycline Monohydrate (Vibramycin Tablet) 100 mg Q12HR PO 06/19/25 22:00 06/20/25 09:27 Heparin Sodium (Porcine) 5,000 units Q12HR SC 06/19/25 22:00 06/20/25 09:31 Aspirin 81 mg DAILY PO 06/20/25 10:00 06/20/25 10:17 DC 06/20/25 09:27 Sevelamer HCl (Renagel) 800 mg TIDWM PO 06/20/25 08:00 06/20/25 12:16 Tacrolimus (Prograf) 1 mg BID PO 06/19/25 22:00 06/20/25 09:28 Mycophenolate Mofetil (Cellcept) 500 mg BID PO 06/19/25 22:00 06/20/25 09:28 Prednisone 5 mg DAILY PO 06/20/25 10:00 06/20/25 09:27 Aspirin (Ecotrin Enteric Coated Tablet) 81 mg DAILY PO 06/21/25 10:00 Carvedilol (Coreg Tablet) 12.5 mg Q12HR PO 06/20/25 22:00 Atorvastatin Calcium (Lipitor) 10 mg HS PO 06/20/25 22:00 Diagnostic Test (Pha) (Accu-Chek Comfort Curve T) 1 strip ACHS 06/20/25 17:00 Insulin Human Regular (InsuLIN R) ACHS SC 06/20/25 17:00 Dextrose 50 ml UD PRN IV Blood Sugar LESS THAN 60 06/20/25 12:00 Amlodipine Besylate (Norvasc Tablet) 10 mg DAILY PO 06/21/25 10:00 Family History: Diabetes mellitus G8 MOTHER, 19 CHILD Review of Systems As per history of present illness otherwise all systems are reviewed and are noncontributory. H&P Exam Vital Signs/I&O Vital Sign Date Time Temp Pulse Resp B/P (MAP) Pulse Ox O2 Delivery O2 Flow Rate FiO2 06/20/25 13:25 129/88 06/20/25 11:16 98.1 59 20 98.1 06/20/25 09:59 Nasal Cannula* 2 28 06/20/25 05:30 100 Intake and Output 06/19/25 06/20/25 18:59 06:59 Intake Total 50 ml Output Total 1950 ml Balance -1900 ml Intake IV Total 50 ml Output Urine Total 1950 ml # Voids 5 Physical Exam Gen: nad, thin male who appears stated age heent: nc/at, mmm lungs: cta anteriorly cvs: no rub abd: soft, bowel sounds audible, kidney allograft is nontender. ext: no edema skin: no rash neuro: alert and oriented Labs/Diagnostic Data Labs/Diagnostic Data Laboratory Tests Test 06/20/25 03:48 06/19/25 22:02 06/19/25 19:24 06/19/25 14:52 Range/Units White Blood Count 6.8 4.4-10.8 10^3/uL Red Blood Count 5.30 4.5-5.90 10^6/uL Hemoglobin 15.0 13.5-17.5 g/dL Hematocrit 46.0 # 41.0-53.0 % Mean Corpuscular Volume 86.7 80.0-100.0 fL Mean Corpuscular Hemoglobin 28.2 28.0-32.0 pg Mean Corpuscular Hemoglobin Concent 32.5 32.0-36.0 g/dL Red Cell Distribution Width 14.2 11.8-14.3 % Platelet Count 163 140-450 10^3/uL Mean Platelet Volume 8.9 6.9-10.8 fL Neutrophils (%) (Auto) 78.6 37.0-80.0 % Lymphocytes (%) (Auto) 9.8 L 10.0-50.0 % Monocytes (%) (Auto) 9.9 0.0-12.0 % Eosinophils (%) (Auto) 1.3 0.0-7.0 % Basophils (%) (Auto) 0.4 0.0-2.0 % Neutrophils # (Auto) 5.3 1.6-8.6 10 ^3/uL Lymphocytes # (Auto) 0.7 0.4-5.4 10 ^3/uL Monocytes # (Auto) 0.7 0-1.3 10 ^3/uL Eosinophils # (Auto) 0.1 0-0.8 10 ^3/uL Basophils # (Auto) 0 0-0.2 10 ^3/uL Nucleated Red Blood Cells 0.1 % Sodium Level 141 140 136-145 mmol/L Potassium Level 4.6 5.1 3.5-5.1 mmol/L Chloride Level 109 H 111 H 98-107 mmol/L Carbon Dioxide Level 23 21 20-31 mmol/L Anion Gap 9 8 5-15 Blood Urea Nitrogen 21 20 9-23 mg/dL Creatinine 1.51 H 1.60 H 0.700-1.30 mg/dL Glomerular Filtration Rate Calc 50 46 >90 mL/min BUN/Creatinine Ratio 13.9 12.5 10.0-20.0 Serum Glucose 186 H 204 #H 74-106 mg/dL Hemoglobin A1c 7.1 H <5.7 % A1C Calcium Level 10.1 9.6 8.7-10.4 mg/dL Magnesium Level 1.6 1.6-2.6 mg/dL B-Type Natriuretic Peptide 970.73 858.25 0-100 pg/mL Triglycerides Level 226 H < 150 mg/dL Cholesterol Level 194 < 200 mg/dL LDL Cholesterol 118 H < 100 mg/dL HDL Cholesterol 45 40-59 mg/dL Thyroid Stimulating Hormone (TSH) 3.29 0.55-4.78 uIU/mL Influenza Type A Antigen Negative Negative Influenza Type B Antigen Negative Negative SARS-CoV-2 Antigen (Rapid) Negative NEGATIVE Lactic Acid Level 0.8 0.4-2.0 mmol/L Phosphorus Level 2.7 2.4-5.1 mg/dL Troponin I High Sensitivity 13 </=54 ng/L Test 06/19/25 13:08 06/19/25 11:59 06/19/25 00:00 Range/Units Troponin I High Sensitivity 12 11 </=54 ng/L White Blood Count 6.2 4.4-10.8 10^3/uL Red Blood Count 4.80 4.5-5.90 10^6/uL Hemoglobin 13.6 13.5-17.5 g/dL Hematocrit 41.4 41.0-53.0 % Mean Corpuscular Volume 86.3 80.0-100.0 fL Mean Corpuscular Hemoglobin 28.2 28.0-32.0 pg Mean Corpuscular Hemoglobin Concent 32.7 32.0-36.0 g/dL Red Cell Distribution Width 14.4 H 11.8-14.3 % Platelet Count 154 140-450 10^3/uL Mean Platelet Volume 9.0 6.9-10.8 fL Neutrophils (%) (Auto) 79.7 37.0-80.0 % Lymphocytes (%) (Auto) 10.6 10.0-50.0 % Monocytes (%) (Auto) 7.8 0.0-12.0 % Eosinophils (%) (Auto) 1.4 0.0-7.0 % Basophils (%) (Auto) 0.5 0.0-2.0 % Neutrophils # (Auto) 4.9 1.6-8.6 10 ^3/uL Lymphocytes # (Auto) 0.7 0.4-5.4 10 ^3/uL Monocytes # (Auto) 0.5 0-1.3 10 ^3/uL Eosinophils # (Auto) 0.1 0-0.8 10 ^3/uL Basophils # (Auto) 0 0-0.2 10 ^3/uL Nucleated Red Blood Cells 0.2 % Sodium Level 142 136-145 mmol/L Potassium Level 4.3 3.5-5.1 mmol/L Chloride Level 112 H 98-107 mmol/L Carbon Dioxide Level 17 L 20-31 mmol/L Anion Gap 13 5-15 Blood Urea Nitrogen 21 9-23 mg/dL Creatinine 1.56 H 0.700-1.30 mg/dL Glomerular Filtration Rate Calc 48 >90 mL/min BUN/Creatinine Ratio 13.5 10.0-20.0 Serum Glucose 98 74-106 mg/dL Calcium Level 9.8 8.7-10.4 mg/dL Total Bilirubin 0.6 0.2-1.0 mg/dL Aspartate Amino Transferase (AST) 14 13-40 U/L Alanine Aminotransferase (ALT) 12 7-40 U/L Alkaline Phosphatase 72 46-116 U/L Total Protein 6.2 5.7-8.2 g/dL Albumin 3.8 3.2-4.8 g/dL Urine Color Light-yellow Yellow Urine Clarity Clear Clear Urine pH 5.5 5.0-9.0 Urine Specific [place] 1.015 1.001-1.035 Urine Protein Trace H Negative Urine Ketones Negative Negative Urine Blood Negative Negative /uL Urine Nitrite Negative Negative Urine Bilirubin Negative Negative Urine Urobilinogen Normal Negative mg/dL Urine Leukocyte Esterase Negative Negative /uL Urine RBC <1 0 - 3 /hpf Urine Microscopic WBC < 1 0-3 /HPF Urine Squamous Epithelial Cells None seen <5 /hpf Urine Bacteria None seen None Seen /hpf Urine Glucose Normal Normal mg/dL Assessment IMP: 1) ESRD now status post donor kidney transplant approximately two years ago - serum creatinine has been in the mid one range 2) acute on chronic heart failure - symptoms of dyspnea improved with diuresis 3) anemia 4) diabetes 5) hypertension REC: - clinically stable from Nephrology perspective, Mr. Jeffries states that he is looking for local nephrology care as he has been going down to [facility] for the past two years. - we will continue with current immunosuppressive regimen - agree with use of loop diuretic as needed to achieve desired ECF volume - we will continue to follow closely with you. Thank you for the consultation. Plan discussed with: Patient VIVIAN ASHFORD MD Jun 20, 2025 14:29
[2025-06-20] MEDS: ACCU-CHEK COMFORT CURVE STRIP VI SCH (16:54)
[2025-06-20] MEDS: InsuLIN REG 1unit/0.01ml Soln (100units/ml) SC SCH (16:54)
[2025-06-20 17:00] VITALS: BP 111/55; PULSE 54; RESP 12; TEMP 98.7; O2SAT 86
[2025-06-20] MEDS ORDERED: TAMS0.4C39 PO (17:25)
[2025-06-20] MEDS ORDERED: FURO40TA4 PO (17:25)
[2025-06-20] MEDS ORDERED: MYCO250C PO (17:25)
[2025-06-20] MEDS ORDERED: PANT40TA2 PO (17:25)
[2025-06-20] MEDS ORDERED: PRE5T PO (17:25)
[2025-06-20] MEDS ORDERED: TACR1GRA PO (17:25)
[2025-06-20] MEDS ORDERED: FLUC200T50 PO (17:25)
[2025-06-20] MEDS ORDERED: ATEN-60 PO (17:25)
[2025-06-20] MEDS ORDERED: NIFE1TAB31 PO (17:25)
[2025-06-20] MEDS ORDERED: OXYB5TAB14 PO (17:25)
[2025-06-20] MEDS ORDERED: INSLISPI SC (17:25)
[2025-06-20] MEDS ORDERED: POTTAB2 PO (17:25)
[2025-06-20] MEDS ORDERED: INSU100I70 SC (17:25)
[2025-06-20] MEDS ORDERED: CHLO25TA2 PO (17:25)
[2025-06-20 20:00] VITALS: PULSE 57; PULSE 61; RESP 18; O2SAT 92
[2025-06-20 21:00] VITALS: BP 144/70; PULSE 57; RESP 20; TEMP 98.2; O2SAT 92
[2025-06-20] MEDS: ATORVASTATIN 20 MG TAB PO SCH (21:29)
[2025-06-20] MEDS: CARVEDILOL 12.5 MG TAB PO SCH (21:29)
[2025-06-21 01:00] VITALS: BP 128/74; PULSE 55; RESP 20; TEMP 98; O2SAT 93
[2025-06-21 05:00] VITALS: BP 139/70; PULSE 54; RESP 20; TEMP 98.6; O2SAT 96
--- NOTE | 2025-06-21 06:10 | DVH ---
INDICATION: pulmonary congestion TECHNIQUE: Frontal view of the chest. COMPARISON: XY CHEST PORTABLE on DOS: 06/19/25, XY CHEST PORTABLE on DOS: 06/19/25 FINDINGS: Lines and tubes: None Cardiomediastinal silhouette: Prominent Pulmonary vasculature: Prominent. Lung expansion: normal Lung airspace: normal Lung interstitium: normal Pleura: normal Pneumothorax: no Bones: Unremarkable Other: Bilateral subclavian region vascular stents are noted. IMPRESSION: Cardiomegaly with pulmonary vascular congestion.
[2025-06-21 06:41] LABS: Anion Gap 11 (5-15); Carbon Dioxide 24 mmol/L (20-31); Chloride 103 mmol/L (98-107); Potassium 4.1 mmol/L (3.5-5.1); Sodium 138 mmol/L (136-145)
[2025-06-21 06:42] LABS: Calcium 9.9 mg/dL (8.7-10.4)
[2025-06-21 06:47] LABS: BUN/Creatinine Ratio 15.9 (10.0-20.0)
[2025-06-21 06:48] LABS: Magnesium 1.7 mg/dL (1.6-2.6)
[2025-06-21 07:03] LABS: Blood Urea Nitrogen 28 mg/dL (9-23); Glucose 124 mg/dL (74-106)
[2025-06-21 08:00] VITALS: PULSE 56
[2025-06-21 09:00] VITALS: BP 129/34; PULSE 57; RESP 12; TEMP 98.4; O2SAT 96
[2025-06-21] MEDS: ASPirin-EC 81 mg tab PO SCH (09:20)
--- NOTE | 2025-06-21 09:45 | DVHSR ---
APPROVED REPORT EXAM: Two-dimensional and M-mode echocardiogram with Doppler and color Doppler. Blood Pressure: 143/57 mmHg INDICATION SOB RISK FACTORS Height: 5' 2", Weight: 155 DIMENSIONS LVDd4.1 (3.8-5.7cm)LA (2D)4.4 (1.9-4.0cm)Aortic Root2.9 (2.0-3.7cm) LVDs2.8 (2.5-4.0cm)LA (MM) (1.9-4.0cm)Aortic Cusp Exc1.4 (1.5-2.0cm) EF (%) 60.0 (55-70%)Rt. Atrium4.1 (1.9-4.0cm)Asc. Aorta cm IVSd1.2 (0.7-1.1cm)RV (D) (1.8-2.4cm) PWd1.2 (0.7-1.1cm) Mitral Valve MitralMitral Stenosis E wave1.20m/sMV Mean GR.mmHg A wave1.20m/sMV Peak GR.mmHg E/A ratio1.02D MVAcm2 Aortic Valve Aortic ValveAortic Stenosis V10.90m/Shemar Mean GR.11mmHg V22.20m/Shemar Peak GR.20mmHg LVOT Diameter2.0 (1.8-2.4cm)Doppler AVA1.28cm2 Pulmonic Valve V21.80m/s Tricuspid Valve TR Velocity3.00m/s [id number] Conclusion lvef 55% moderate lvh abnormal septal motion rv not seen trace to mild mitral regurg aortic valve not well seen
[2025-06-21] MEDS: INSULIN LANTUS (GLARGINE) 1 /0.01ml (100units/ml) SC SCH (11:01)
[2025-06-21 13:00] VITALS: BP 117/24; PULSE 55; RESP 18; TEMP 97.8; O2SAT 94
--- NOTE | 2025-06-21 15:26 | DVHDSRES ---
Discharge Summary Date of Admission Resident Creating Document: ROSINA JIMENEZ RESIDENT Jun 19, 2025 at 18:32 Date of Discharge: Jun 21, 2025 Admitting Diagnosis Shortness of breath Labs/Diagnostic Data: Laboratory Results Test 06/21/25 12:02 06/21/25 05:26 06/20/25 03:48 06/19/25 22:02 POC Glucose 174 mg/dl (70-106) Sodium Level 138 mmol/L (136-145) Potassium Level 4.1 mmol/L (3.5-5.1) Chloride Level 103 mmol/L (98-107) Carbon Dioxide Level 24 mmol/L (20-31) Anion Gap 11 (5-15) Blood Urea Nitrogen 28 mg/dL (9-23) Creatinine 1.76 mg/dL (0.700-1.30) Glomerular Filtration Rate Calc 41 mL/min (>90) BUN/Creatinine Ratio 15.9 (10.0-20.0) Serum Glucose 124 mg/dL (74-106) Calcium Level 9.9 mg/dL (8.7-10.4) Magnesium Level 1.7 mg/dL (1.6-2.6) B-Type Natriuretic Peptide 454.35 pg/mL (0-100) White Blood Count 6.8 10^3/uL (4.4-10.8) Red Blood Count 5.30 10^6/uL (4.5-5.90) Hemoglobin 15.0 g/dL (13.5-17.5) Hematocrit 46.0 % (41.0-53.0) Mean Corpuscular Volume 86.7 fL (80.0-100.0) Mean Corpuscular Hemoglobin 28.2 pg (28.0-32.0) Mean Corpuscular Hemoglobin Concent 32.5 g/dL (32.0-36.0) Red Cell Distribution Width 14.2 % (11.8-14.3) Platelet Count 163 10^3/uL (140-450) Mean Platelet Volume 8.9 fL (6.9-10.8) Neutrophils (%) (Auto) 78.6 % (37.0-80.0) Lymphocytes (%) (Auto) 9.8 % (10.0-50.0) Monocytes (%) (Auto) 9.9 % (0.0-12.0) Eosinophils (%) (Auto) 1.3 % (0.0-7.0) Basophils (%) (Auto) 0.4 % (0.0-2.0) Neutrophils # (Auto) 5.3 10 ^3/uL (1.6-8.6) Lymphocytes # (Auto) 0.7 10 ^3/uL (0.4-5.4) Monocytes # (Auto) 0.7 10 ^3/uL (0-1.3) Eosinophils # (Auto) 0.1 10 ^3/uL (0-0.8) Basophils # (Auto) 0 10 ^3/uL (0-0.2) Nucleated Red Blood Cells 0.1 % Hemoglobin A1c 7.1 % A1C (<5.7) Triglycerides Level 226 mg/dL (< 150) Cholesterol Level 194 mg/dL (< 200) LDL Cholesterol 118 mg/dL (< 100) HDL Cholesterol 45 mg/dL (40-59) Thyroid Stimulating Hormone (TSH) 3.29 uIU/mL (0.55-4.78) Influenza Type A Antigen Negative (Negative) Influenza Type B Antigen Negative (Negative) SARS-CoV-2 Antigen (Rapid) Negative (NEGATIVE) Test 06/19/25 19:24 06/19/25 14:52 06/19/25 11:59 06/19/25 00:00 Lactic Acid Level 0.8 mmol/L (0.4-2.0) Phosphorus Level 2.7 mg/dL (2.4-5.1) Troponin I High Sensitivity 13 ng/L (</=54) Total Bilirubin 0.6 mg/dL (0.2-1.0) Aspartate Amino Transferase (AST) 14 U/L (13-40) Alanine Aminotransferase (ALT) 12 U/L (7-40) Alkaline Phosphatase 72 U/L (46-116) Total Protein 6.2 g/dL (5.7-8.2) Albumin 3.8 g/dL (3.2-4.8) Urine Color Light-yellow (Yellow) Urine Clarity Clear (Clear) Urine pH 5.5 (5.0-9.0) Urine Specific [place] 1.015 (1.001-1.035) Urine Protein Trace (Negative) Urine Ketones Negative (Negative) Urine Blood Negative /uL (Negative) Urine Nitrite Negative (Negative) Urine Bilirubin Negative (Negative) Urine Urobilinogen Normal mg/dL (Negative) Urine Leukocyte Esterase Negative /uL (Negative) Urine RBC <1 /hpf (0 - 3) Urine Microscopic WBC < 1 /HPF (0-3) Urine Squamous Epithelial Cells None seen /hpf (<5) Urine Bacteria None seen /hpf (None Seen) Urine Glucose Normal mg/dL (Normal) Other Laboratory Tests 06/21/25 05:26 06/20/25 03:48 Brief Hx & Hospital Course: Mr. Elias Iraheta is a 69-year-old male with a past medical history significant for end-stage renal disease status post renal transplant, hypertensive heart disease, and insulin-dependent diabetes mellitus. He presented to the Emergency Department on 06/19/2025 with worsening shortness of breath over the past two days, particularly with exertion. He denied chest pain, pressure, fever, chills, recent travel, or sick contacts. He does not use home oxygen and has no history of COPD, asthma, ID, or known heart failure. He reported some sputum production but no other infectious symptoms. On arrival, the patient was found to be bradycardic with ECG showing sinus bradycardia and tall T-waves in V3-V4, but no acute ST segment changes. Serial troponins were within normal limits, and cardiology was consulted for evaluation of possible new-onset heart failure. Chest X-ray revealed cardiomegaly, bilateral pulmonary vascular congestion, and possible right lower lobe consolidation, consistent with pulmonary edema and possible pneumonia. He was started on IV Lasix 40 mg BID, ceftriaxone, and doxycycline, along with duo nebulizers every 6 hours. Echocardiogram showed: LVEF 55%. Moderate left ventricular hypertrophy. Abnormal septal motion. Trace to mild mitral regurgitation. Aortic valve not well visualized These findings support a diagnosis of acute on chronic heart failure, possibly with preserved ejection fraction. On evaluation today, he states he is well, pain is manageable. His vitals have remained stable for discharge home, follow up visit in discharge clinic and nephrology (Dr. Mixon). All medications and recommendations were thoroughly explained and the patient states he understands and agrees. Detailed discussion held with patient at bedside were all questions were answered and concerns were addressed. Exam on the day of discharge: Gen - no pallor, no icterus, no cyanosis, no peripheral edema . Skin - Patients skin is warm and dry. HEENT - normocephalic, atraumatic, moist mucous membranes. Neck - full ROM, no LAD, JVD mildly distended Pulmonary - B/L decreased breath sounds with bibasilar rales cardiovascular - regular S1,S2 heard, no added sounds, no murmurs heard. peripheral pulses normal radial 2+, pedal 2+. GI - soft, nontender abdomen. no hepatosplenomegaly. Bowel sounds normoactive Neurological - Patient is A/O X 3 . Bilateral upper extremity strength 5/5, bilateral lower extremity strength 5/5, no facial droop, normal speech, no tremor, no sensory deficits. Discussed with Dr. Mosqueda Consults/Reason for consult Cardiology for CHF; nephrology for renal transplant Operations or Procedures PATIENT: ELIAS IRAHETA ACCT: [id number] UNIT: [id number] : 1955 [facility] AGE / SEX: 69 / M ADM STATUS: ADM IN SERVICE 0400 ORDERING PHYSICIAN: STEFAN HONG UMBRELLA TIPPER HAND PROCEDURE(s): CXRP - CHEST PORTABLE REASON: pulmonary congestion ORDER NUMBER(s): [id number], ACCESSION NUMBER(s): [id number] INDICATION: pulmonary congestion TECHNIQUE: Frontal view of the chest. COMPARISON: XY CHEST PORTABLE on DOS: 06/19/25, XY CHEST PORTABLE on DOS: 06/19/25 FINDINGS: Lines and tubes: None Cardiomediastinal silhouette: Prominent Pulmonary vasculature: Prominent. Lung expansion: normal Lung airspace: normal Lung interstitium: normal Pleura: normal Pneumothorax: no Bones: Unremarkable Other: Bilateral subclavian region vascular stents are noted. IMPRESSION: Cardiomegaly with pulmonary vascular congestion. PATIENT: ELIAS IRAHETA ACCT: [id number] UNIT: [id number] : 1955 LOC: OVERFLOW ROOM / BED: [address] [place] [address] AGE / SEX: 69 / M ADM STATUS: ADM IN SERVICE 31 ORDERING PHYSICIAN: ROSINA JIMENEZ PROCEDURE(s): ABDC - ABDOMEN COMPLETE SONOGRAM REASON: abd distention ORDER NUMBER(s): [id number], ACCESSION NUMBER(s): [id number] ULTRASOUND ABDOMEN: REASON FOR EXAM: abd distention TECHNIQUE: Real-time sector scans in the transverse and longitudinal planes were obtained through the abdomen. FINDINGS: The liver is of normal size and contour. There is hepatopetal flow in the portal vein. There is no intrahepatic biliary ductal dilatation. There is an anechoic cyst in the inferior left lobe of the liver measuring 2.9 x 2.4 x 3.1 cm. The common bile duct measures 14 mm. No gallstones or sludge are identified. There is no gallbladder wall thickening nor pericholecystic fluid. There is no sonographic Brower's sign. The spleen is normal in size. The visualized portion of the pancreas is unremarkable. The right kidney is echogenic and measures 8.3 cm. The left kidney is echogenic and measures 9.1 cm. There is no hydronephrosis or nephrolithiasis. There is no evidence of focal renal mass. There are several anechoic cysts within the right kidney, the largest of which measures 2.5 cm at the superior pole. There are a few tiny anechoic cysts within the left kidney, the largest of which measures 1.2 cm in the interpolar region. There is a transplant kidney in the right pelvis which measures 9.9 cm in length. The transplant kidney demonstrates normal echogenicity. There is no hydronephrosis. The visualized portions of the abdominal aorta demonstrate no evidence of aneurysmal dilatation. The visualized inferior vena cava is unremarkable. There is no free intraperitoneal fluid. There are bilateral pleural effusions. IMPRESSION: Incidental note of bilateral pleural effusions. Dilated common bile duct at 14 mm. Recommend MRCP for evaluation of the distal common bile duct. Atrophic [place] [facility] with multiple cysts. Normal appearance of the right pelvic transplant kidney. PATIENT: ELIAS IRAHETA ACCT: [id number] UNIT: [id number] : 1955 LOC: ER ROOM / BED: / AGE / SEX: 69 / M ADM STATUS: REG ER SERVICE 1151 ORDERING PHYSICIAN: JAYY ALAN MD PROCEDURE(s): CXRP - CHEST PORTABLE REASON: sob ORDER NUMBER(s): [id number], ACCESSION NUMBER(s): [id number] CHEST PORTABLE, HISTORY: sob COMPARISON: None None TECHNICAL DATA: 1 view of the chest was obtained. FINDINGS: Lines and tubes: None Cardiomediastinal silhouette: Prominent Pulmonary vasculature: Prominent. Lung expansion: normal Lung airspace: normal Lung interstitium: normal Pleura: normal Pneumothorax: no Bones: Unremarkable Other: Bilateral subclavian region vascular stents are noted. IMPRESSION: Cardiomegaly with pulmonary vascular congestion. - PATIENT: ELIAS IRAHETA ACCT: [id number] UNIT: [id number] : 1955 LOC: TELE-CENTR ROOM / BED: 0214T / A AGE / SEX: 69 / M ADM STATUS: ADM IN SERVICE 1832 ORDERING PHYSICIAN: ROSINA JIMENEZ PROCEDURE(s): ECIDC - ECHO 2D MODE CARDIAC DOP REASON: SOB ORDER NUMBER(s): [id number], ACCESSION NUMBER(s): [id number] APPROVED REPORT EXAM: Two-dimensional and M-mode echocardiogram with Doppler and color Doppler. Blood Pressure: 143/57 mmHg INDICATION SOB RISK FACTORS Height: 5' 2", Weight: 155 DIMENSIONS LVDd 4.1 (3.8-5.7cm) LA (2D) 4.4 (1.9-4.0cm) Aortic Root 2.9 (2.0- 3.7cm) LVDs 2.8 (2.5-4.0cm) LA (MM) (1.9-4.0cm) Aortic Cusp Exc 1.4 (1.5- 2.0cm) EF (%) 60.0 (55-70%) Rt. Atrium 4.1 (1.9-4.0cm) Asc. Aorta cm IVSd 1.2 (0.7-1.1cm) RV (D) (1.8-2.4cm) PWd 1.2 (0.7-1.1cm) Mitral Valve Mitral Mitral Stenosis E wave 1.20m/s MV Mean GR. mmHg A wave 1.20m/s MV Peak GR. mmHg E/A ratio 1.0 2D MVA cm2 Aortic Valve Aortic Valve Aortic Stenosis V1 0.90m/s AO Mean GR. 11mmHg V2 2.20m/s AO Peak GR. 20mmHg LVOT Diameter 2.0 (1.8-2.4cm) Doppler MARIA TERESA 1.28cm2 Pulmonic Valve V2 1.80m/s Tricuspid Valve TR Velocity 3.00m/s RVSP 40mmHg Conclusion lvef 55% moderate lvh abnormal septal motion rv not seen trace to mild mitral regurg aortic valve not well seen SIGNED BY: AMINATA RANDALL MD SIGNED DATE/TIME: 06/21/25 0945 PATIENT: ELIAS IRAHETA ACCT: [id number] : 1955 LOC: ER ROOM / BED: / AGE / SEX: 69 / M ADM STATUS: REG ER SERVICE UNIT: [id number] ORDERING PHYSICIAN: JAYY ALAN MD PROCEDURE(s): EKG - ELECTROCARDIGRAM ORDER NUMBER(s): [id number], ACCESSION NUMBER(s): [id number] [facility] Test Date: 2025-06-19 Test Time: 11:28:17 Pat Name: ELIAS IRAHETA Department: Room: Gender: M Fish Smoker: DYAN : 1955 Requested By: JAYY ALAN Order Number: [id number] Reading MD: Measurements Intervals Mullen Rate: 56 P: -5 VA: 153 QRS: 19 QRSD: 82 T: 69 QT: 437 QTc: 422 Interpretive Statements Sinus rhythm Probable left atrial enlargement Probable anteroseptal infarct, old Please click the below link to view image of tracing. DICTATED BY: DICTATED DATE/TIME:06/19/251127 Condition at Discharge: Stable Final Diagnosis/Problems List #Acute hypoxic respiratory failure likely due to pulmonary edema #Pulmonary edema likely due to acute on chronic heart failure #Acute on chronic heart failure with possible diastolic dysfunction #Probable pneumonia likely due to Gram +/- bacteria #Sinus bradycardia, asymptomatic #History of renal transplant #SHAJI on CKD likely due to VMN #Common bile duct dilation, asymptomatic #Dyslipidemia #Type 2 diabetes with hyperglycemia Discharge Disposition: Home Discharge Instruct/Medications Diet: Renal Diet comment: strictly low salt diet Activity: Light activity Follow Up/Referral: Follow up in the discharge clinic next week to setup primary care Follow up to be scheduled with nephrology (Dr. Mixon) in outpatient clinic in 2 weeks to setup care Follow up with opthalmic tech to be scheduled Medications: New medication: Lasix 40 mg daily Medication stop: Atenolol continue home medications including tacrolimus, prednisone, mycophenolate mofetil, insulin, chlorthalidone, atorvastatin, nifedifine, aspirin, pancrelipase Creon, sevelamer, tamsulosin Scheduled Aspirin (Aspir-Low Ec), 81 MG PO DAILY, (Reported) Atorvastatin Calcium (Atorvastatin Calcium), 1 TAB PO DAILY, (Reported) B-Complex W/ C & Folic Acid (Nephro-Martin), 1 OR DAILY, (Reported) Calcium Acetate (Phosphate Bin (Calcium Acetate), 1,334 MG PO TIDWM, (Reported) Epa Ethyl Elsie (Vascepa), 1 GM OR TID, (Reported) Fluconazole (Fluconazole), 100 MG PO DAILY, (Reported) Furosemide (Furosemide), 1 TAB PO DAILY, (Reported) Furosemide (Lasix), 40 MG PO DAILY Insulin Glargine-Yfgn (Insulin Glargine), 20 UNIT SC AMHY, (Reported) Mycophenolate Mofetil (Cellcept), 250 MG PO BID, (Reported) Nifedipine (Nifedipine Er), 1 TAB PO DAILY, (Reported) Oxybutynin Chloride (Oxybutynin Chloride), 5 MG PO DAILY, (Reported) Pancrelipase (Lipase-Protease- (Creon), 36,000 UNT OR TID, (Reported) Pantoprazole Sodium Sesquihydr (Protonix), 40 MG PO DAILY, (Reported) Pot Phosphate Dibasic & Monoba (K-Phos Neutral), 250 MG PO BID, (Reported) Prednisone (Prednisone), 5 MG PO DAILY, (Reported) Sevelamer Carbonate (Renvela), 800 MG PO TIDWM, (Reported) Tacrolimus (Prograf), 1 MG PO BID, (Reported) Tamsulosin Hcl (Tamsulosin Hcl), 0.4 MG PO HS, (Reported) Miscellaneous Medications Chlorthalidone (Chlorthalidone), 25 MG PO, (Reported) Insulin Lispro (Human) (Humalog), 0 SC, (Reported) Discontinued Medications Amlodipine Besylate (Amlodipine Besylate), 10 MG PO DAILY, (Reported) Atenolol (Atenolol), 1 TAB PO DAILY, (Reported) Carvedilol (Carvedilol), 12.5 MG PO Q12HR, (Reported) Doxazosin Mesylate (Doxazosin Mesylate), 4 MG PO HS, (Reported) Discharge Statement: "Patient was advised to return to the ER or call 911 if any headaches, dizziness, shortness of breath, chest pain, abdominal pain, bleeding, fevers, or worsening of medical condition. Patient was counseled about treatment plan, medications, possible side effects, patientverbalized understanding. All questions were answered to the best of my ability. This discharge took greater then 30 minutes in planning, reviewing documentation, counseling the patient, and discussing with other team members." ASSESSMENT ASSESSMENT Assessment #Acute hypoxic respiratory failure likely due to pulmonary edema #Pulmonary edema likely due to acute on chronic heart failure #Acute on chronic heart failure with possible diastolic dysfunction #Probable pneumonia likely due to Gram +/- bacteria #Sinus bradycardia, asymptomatic #History of renal transplant #SHAJI on CKD likely due to VMN #Common bile duct dilation, asymptomatic #Dyslipidemia #Type 2 diabetes with hyperglycemia Date of Service: Jun 21, 2025 Billing Provider: ASHLEY MOSQUEDA MD Common Visit Codes: 93012-BYF/OBS DISCH DAY >30min Addendum Addendum Addendum I was physically present for the urbina portions of the service provided to patient by THE RESIDENT. I have reviewed the documentation, discussed the case with resident and agree with the resident's documentation except as noted. Also the patient's clinical case was discussed with the patient's nurse. This medical document was created using an electronic medical record system with computerized dictation system. Although this document has been carefully reviewed, there might still be some phonetic and typographical errors. These areas are purely typographical due to imperfections of the software programs, and do not reflect any compromise in the patient's medical care. Late signature. ROSINA JIMENEZ Jun 21, 2025 15:26 ASHLEY MOSQUEDA MD Jun 22, 2025 11:59
--- NOTE | 2025-06-21 15:28 | DVHPN2 ---
Progress Note Date Seen: Jun 21, 2025 Medical Necessity Reason Pt with a Central, PICC or Fol: No Subjective Patient reports: No new complaints Objective vital signs Vital Sign Date Time Temp Pulse Resp B/P (MAP) Pulse Ox O2 Delivery O2 Flow Rate FiO2 06/21/25 13:00 97.8 55 18 117/24 (55) 94 97.8 06/21/25 08:00 Room Air* 0 21 Total Intake and Output 06/20/25 06/20/25 06/21/25 15:00 23:00 07:00 Intake Total 340 ml 600 ml 660 ml Output Total 1700 ml 800 ml 675 ml Balance -1360 ml -200 ml -15 ml medications Current Medications Medications Dose Ordered Sig/Jayy Route Start Time Stop Time Status Last Admin Dose Admin Nitroglycerin 0.4 mg Q5MINP PRN SL 06/19/25 18:45 Pantoprazole Sodium 40 mg DAILY@0600 PO 06/20/25 06:00 06/21/25 05:30 40 MG Ondansetron HCl 4 mg Q6HPRN PRN IV 06/19/25 18:45 Ceftriaxone Sodium 50 ml @ 100 mls/hr DAILY@09 IV 06/20/25 09:00 06/21/25 09:18 100 MLS/HR Doxycycline Monohydrate 100 mg Q12HR PO 06/19/25 22:00 06/21/25 09:18 100 MG Heparin Sodium (Porcine) 5,000 units Q12HR SC 06/19/25 22:00 06/21/25 09:29 5,000 UNITS Sevelamer HCl 800 mg TIDWM PO 06/20/25 08:00 06/21/25 12:49 800 MG Tacrolimus 1 mg BID PO 06/19/25 22:00 06/21/25 09:20 1 MG Mycophenolate Mofetil 500 mg BID PO 06/19/25 22:00 06/21/25 09:19 500 MG Prednisone 5 mg DAILY PO 06/20/25 10:00 06/21/25 09:19 5 MG Aspirin 81 mg DAILY PO 06/21/25 10:00 06/21/25 09:20 81 MG Carvedilol 12.5 mg Q12HR PO 06/20/25 22:00 06/21/25 09:20 12.5 MG Diagnostic Test (Pha) 1 strip ACHS 06/20/25 17:00 06/21/25 11:30 1 STRIP Insulin Human Regular ACHS SC 06/20/25 17:00 06/21/25 12:51 3 UNITS Dextrose 50 ml UD PRN IV 06/20/25 12:00 Amlodipine Besylate 10 mg DAILY PO 06/21/25 10:00 Atorvastatin Calcium 40 mg HS PO 06/21/25 22:00 Furosemide 40 mg DAILY IV 06/22/25 10:00 Insulin Glargine 15 units DAILY@1000 SC 06/21/25 10:00 06/21/25 11:01 15 UNITS Examination Gen: Appears stated age, NAD Heart: RRR, normal S1 and S2 Lungs: bilateral air entry Ext: No edema Neuro: Alert and oriented x 4 laboratory and microbiology Laboratory Tests 06/21/25 05:26 06/20/25 03:48 Test 06/21/25 05:26 Range/Units Serum Glucose 124 H 74-106 mg/dL Labs and/or images reviewed: Labs reviewed by me Problem List/Assessment/Plan Problem List/Assessment/Plan IMP: 1) ESRD now status post donor kidney transplant approximately two years ago - serum creatinine has been in the mid one range 2) acute on chronic heart failure 3) anemia 4) diabetes 5) hypertension REC: - BMP in am - Continue current immunosuppressive regimen - Consider holding diuretics d/t worsening kidney function and uptrend in serum creat - Strict I&Os - Blood pressure control - We will continue to follow. Once discharged pt to follow up outpt Plan discussed with: Patient MONTEROLEAH OGDINEZ BALJINDER Jun 21, 2025 15:28
[2025-06-21] MEDS ORDERED: FURO1TAB31 PO (15:31)
[2025-06-21 15:54] VITALS: BP 119/49; PULSE 55; RESP 18; TEMP 97.8; O2SAT 94
[2025-06-21] MEDS ORDERED: ATORVASTATIN 20 MG TAB PO SCH (22:00)
[2025-06-22] MEDS ORDERED: FUROSEMIDE 40 MG/4 ML VIAL IV SCH (10:00)
== END 2025-06-21 16:45 | disposition home or self-care (01) | DRG 177 ==
LOC: ER 11:13 → OVERFLOW 18:32 → TELE-CENTR 06-20 10:55
PROVIDERS: ATTEND Internal Medicine Nephrology
DX: J15.69 Pneumonia due to other Gram-negative bacteria (principal); I50.33 Acute on chronic diastolic (congestive) heart failure; J96.01 Acute respiratory failure with hypoxia; N18.6 End stage renal disease; N17.0 Acute kidney failure with tubular necrosis; I13.2 Hypertensive heart and chronic kidney disease with heart failure and with stage 5 chronic kidney disease, or end stage renal disease; E87.20 Acidosis, unspecified; Z94.0 Kidney transplant status; D64.9 Anemia, unspecified; Z20.822 Contact with and (suspected) exposure to COVID-19; K83.8 Other specified diseases of biliary tract; E11.22 Type 2 diabetes mellitus with diabetic chronic kidney disease; E78.5 Hyperlipidemia, unspecified; N40.1 Benign prostatic hyperplasia with lower urinary tract symptoms; E11.65 Type 2 diabetes mellitus with hyperglycemia; Z83.3 Family history of diabetes mellitus; Z79.899 Other long term (current) drug therapy; Z79.82 Long term (current) use of aspirin
CPT/HCPCS: 36415; 71045; 76700; 80048; 80053; 80061; 80197; 81001; 82962; 83036; 83605; 83735; 83880; 84100; 84443; 84484; 85025; 87081; 87426; 87804; 93005; 93306; 96365; 96375; G0378; J1815; J7507; J7517